=== PATIENT | female | born 1960 | race Caucasian/White ===

== ENCOUNTER 2017-12-04 01:44 | Inpatient (IN) | payer MEDICAID ==
[~2017-12-04] VITALS: Ht 160 cm; Wt 56.0 kg
[~2017-12-04 01:44] MED LIST: ALBU18HF2 INH; ALBU6.7H3 IH; ALBU8.5H8 INH; AMLO10TA13; ASPI81TA52 PO; BUDE10.22 INH; FAMO40TA73 PO; IPRA3AMP IH; PRED20TA PO
[2017-12-04] MEDS ORDERED: methylPREDNISolone sod succ 125mg/2ml vial IV ONE (01:55)
[2017-12-04] MEDS ORDERED: albuterol 2.5 MG/3 ML nebule CONTNEB PRN (01:55)
[2017-12-04] MEDS ORDERED: normal saline 1000ML IV soln IVB ONE (01:55)
[2017-12-04 02:26] LABS: BASOPHILS # (AUTO) 0.1 X10'3 (0-0.2); BASOPHILS % (AUTO) 0.7 % (0-1); EOSINOPHILS # (AUTO) 0.2 X10'3 (0-0.9); EOSINOPHILS % (AUTO) 1.5 % (0-6); HEMATOCRIT 42.8 % (35.0-45.0); HEMOGLOBIN 14.4 g/dl (12.0-16.0); LYMPHOCYTES % (AUTO) 9.3 % (21-51); MEAN CORPUSCULAR HEMOGLOBIN 30.2 PG (27.0-31.0); MEAN CORPUSCULAR HGB CONC 33.7 % (33.0-36.5); MEAN CORPUSCULAR VOLUME 89.8 FL (78-98); MEAN PLATELET VOLUME 5.8 FL (7.4-10.4); MONOCYTES # (AUTO) 0.6 X10'3 (0-0.9); NEUTROPHILS # (AUTO) 9.4 X10'3 (1.8-7.7); NEUTROPHILS % (AUTO) 83.5 % (42-75); PLATELET COUNT 380 X10'3 (140-440); RED BLOOD COUNT 4.77 X10'6 (4.20-5.60); RED CELL DISTRIBUTION WIDTH 13.4 % (11.5-14.5); WHITE BLOOD COUNT 11.2 X10'3 (4.5-11.0)
[2017-12-04 02:40] LABS: ALANINE AMINOTRANSFERASE 36 U/L (12-78); ALBUMIN 3.5 G/DL (3.4-5.0); ALKALINE PHOSPHATASE 98 IU/L (46-116); ANION GAP 6 (8-16); ASPARTATE AMINO TRANSFERASE 20 U/L (10-37); BILIRUBIN,TOTAL 0.3 MG/DL (0.1-1.0); BLOOD UREA NITROGEN 15 MG/DL (7-18); BUN/CREATININE RATIO 21.4 (6.6-38.0); CALCIUM 9.3 MG/DL (8.5-10.1); CHLORIDE 100 MMOL/L (99-107); GLUCOSE 104 MG/DL (70-104); POTASSIUM 4.1 MMOL/L (3.5-5.1); SODIUM 136 MMOL/L (135-145); TOTAL CARBON DIOXIDE 29.9 MMOL/L (24-32); eGFR 87 ML/MIN
[2017-12-04] MEDS ORDERED: BUDE10.22 INH (03:10)
[2017-12-04] MEDS ORDERED: ALBU8HFA PO (03:10)
[2017-12-04] MEDS ORDERED: IPRA3AMP IH (03:10)
[2017-12-04] MEDS ORDERED: AMLO10TA4 PO (03:10)
[2017-12-04] MEDS ORDERED: acetaminophen 325mg tablet PO PRN (03:15)
[2017-12-04] MEDS ORDERED: ondansetron/PF 4mg/2ml inj IV PRN (03:15)
[2017-12-04] MEDS ORDERED: magnesium hydroxide 30ml (MOM) UD suspension PO PRN (03:15)
[2017-12-04] MEDS ORDERED: mag hydrox/Alum hydrox/simeth 30ml oral suspension PO PRN (03:15)
[2017-12-04] MEDS ORDERED: amLODIPine 5mg tablet PO SCH (03:24)
[2017-12-04] MEDS: acetaminophen 325mg tablet PO PRN ×2 (04:41→16:23)
[2017-12-04] MEDS: amLODIPine 5mg tablet PO SCH (08:05)
[2017-12-04] MEDS: methylPREDNISolone sod succ 125mg/2ml vial IV SCH ×3 (08:06→19:38)
[2017-12-04] MEDS: enoxaparin 40mg/0.4ml syringe SUBCUT SCH (08:06)
[2017-12-04] MEDS ORDERED: normal saline 1000ml 1,000 ML IV SCH (15:10)
[2017-12-04 19:00] VITALS: BP 145/70
[2017-12-04 20:00] VITALS: BP 145/70
[2017-12-04] MEDS: ipratropium/albuterol 3ml nebule NEB PRN (20:02)
[2017-12-05] VITALS: BP 141/86
[2017-12-05] MEDS: methylPREDNISolone sod succ 125mg/2ml vial IV SCH ×4 (02:17→20:01)
[2017-12-05 05:12] LABS: BASOPHILS % (AUTO) 0 % (0-1); EOSINOPHILS # (AUTO) 0.2 X10'3 (0-0.9); EOSINOPHILS % (AUTO) 1.9 % (0-6); HEMATOCRIT 41.8 % (35.0-45.0); HEMOGLOBIN 14.1 g/dl (12.0-16.0); LYMPHOCYTES # (AUTO) 0.4 X10'3 (1.1-4.8); LYMPHOCYTES % (AUTO) 3.3 % (21-51); MEAN CORPUSCULAR HEMOGLOBIN 30.7 PG (27.0-31.0); MEAN CORPUSCULAR HGB CONC 33.6 % (33.0-36.5); MEAN CORPUSCULAR VOLUME 91.2 FL (78-98); MEAN PLATELET VOLUME 6.4 FL (7.4-10.4); MONOCYTES # (AUTO) 0.2 X10'3 (0-0.9); MONOCYTES % (AUTO) 1.5 % (2-12); NEUTROPHILS # (AUTO) 11.4 X10'3 (1.8-7.7); NEUTROPHILS % (AUTO) 93.3 % (42-75); PLATELET COUNT 373 X10'3 (140-440); RED BLOOD COUNT 4.59 X10'6 (4.20-5.60); RED CELL DISTRIBUTION WIDTH 13.8 % (11.5-14.5); WHITE BLOOD COUNT 12.2 X10'3 (4.5-11.0)
[2017-12-05 05:40] LABS: ALBUMIN 3.1 G/DL (3.4-5.0); ANION GAP 6 (8-16); BLOOD UREA NITROGEN 14 MG/DL (7-18); BUN/CREATININE RATIO 19.2 (6.6-38.0); CHLORIDE 101 MMOL/L (99-107); CREATININE 0.73 MG/DL (0.40-0.90); GLUCOSE 150 MG/DL (70-104); POTASSIUM 3.8 MMOL/L (3.5-5.1); SODIUM 135 MMOL/L (135-145); TOTAL CARBON DIOXIDE 28.3 MMOL/L (24-32); eGFR 82 ML/MIN
[2017-12-05 07:00] VITALS: BP 143/91
[2017-12-05] MEDS: levoFLOXACIN-Levaquin 750MG/D5 150 ML IV SCH (07:20)
[2017-12-05] MEDS: amLODIPine 5mg tablet PO SCH (07:21)
[2017-12-05] MEDS: enoxaparin 40mg/0.4ml syringe SUBCUT SCH (07:22)
[2017-12-05] MEDS: ipratropium/albuterol 3ml nebule NEB PRN ×3 (10:24→23:59)
[2017-12-05 11:00] VITALS: BP 141/101
[2017-12-05 14:00] VITALS: BP 139/85
[2017-12-05 20:00] VITALS: BP 146/90
[2017-12-05] MEDS: ipratropium 0.03% 30ML nasal spray NS SCH (20:00)
[2017-12-05] MEDS: clindamycin phosphate inj 300 MG in dextrose 5%-water 50ml 48 ML IV SCH (20:02)
[2017-12-06] VITALS: BP 138/81
[2017-12-06] MEDS: methylPREDNISolone sod succ 125mg/2ml vial IV SCH (01:55)
[2017-12-06] MEDS: clindamycin phosphate inj 300 MG in dextrose 5%-water 50ml 48 ML IV SCH ×4 (01:55→19:12)
[2017-12-06 06:02] LABS: BASOPHILS % (AUTO) 0.1 % (0-1); EOSINOPHILS # (AUTO) 0.1 X10'3 (0-0.9); EOSINOPHILS % (AUTO) 0.9 % (0-6); HEMATOCRIT 41.9 % (35.0-45.0); HEMOGLOBIN 14.1 g/dl (12.0-16.0); LYMPHOCYTES # (AUTO) 0.3 X10'3 (1.1-4.8); LYMPHOCYTES % (AUTO) 1.7 % (21-51); MEAN CORPUSCULAR HEMOGLOBIN 30.4 PG (27.0-31.0); MEAN CORPUSCULAR HGB CONC 33.7 % (33.0-36.5); MEAN CORPUSCULAR VOLUME 90.2 FL (78-98); MEAN PLATELET VOLUME 6.4 FL (7.4-10.4); MONOCYTES # (AUTO) 0.2 X10'3 (0-0.9); MONOCYTES % (AUTO) 1.3 % (2-12); NEUTROPHILS # (AUTO) 15.4 X10'3 (1.8-7.7); PLATELET COUNT 361 X10'3 (140-440); RED BLOOD COUNT 4.65 X10'6 (4.20-5.60)
[2017-12-06 06:07] LABS: ALBUMIN 3.1 G/DL (3.4-5.0); ANION GAP 6 (8-16); BLOOD UREA NITROGEN 21 MG/DL (7-18); BUN/CREATININE RATIO 28.8 (6.6-38.0); CALCIUM 8.9 MG/DL (8.5-10.1); CHLORIDE 104 MMOL/L (99-107); CREATININE 0.73 MG/DL (0.40-0.90); GLUCOSE 139 MG/DL (70-104); POTASSIUM 4.6 MMOL/L (3.5-5.1); SODIUM 137 MMOL/L (135-145); TOTAL CARBON DIOXIDE 27.5 MMOL/L (24-32); eGFR 82 ML/MIN
[2017-12-06 07:00] VITALS: BP 152/91
[2017-12-06] MEDS: ipratropium/albuterol 3ml nebule NEB PRN ×2 (07:40→11:51)
[2017-12-06] MEDS: ipratropium 0.03% 30ML nasal spray NS SCH ×2 (08:00→19:14)
[2017-12-06] MEDS: acetaminophen 325mg tablet PO PRN (09:13)
[2017-12-06] MEDS: amLODIPine 5mg tablet PO SCH (09:14)
[2017-12-06] MEDS: predniSONE 20 mg tablet PO SCH (09:14)
[2017-12-06] MEDS: guaiFENesin/codeine phos 10ml UD oral syrup PO PRN ×3 (09:14→19:14)
[2017-12-06] MEDS: LACTOBACILLUS RHAMNOSUS GG 15 billion unit sprinkle caps PO SCH (09:15)
[2017-12-06] MEDS: enoxaparin 40mg/0.4ml syringe SUBCUT SCH (09:15)
[2017-12-06] MEDS: levoFLOXACIN-Levaquin 750MG/D5 150 ML IV SCH (09:59)
[2017-12-06] MEDS ORDERED: ketorolac tromethamine 15mg/ml inj. IV ONE (10:05)
[2017-12-06 11:00] VITALS: BP 141/78
[2017-12-06] MEDS: ipratropium/albuterol 3ml nebule NEB SCH ×4 (12:00→23:23)
[2017-12-06 20:00] VITALS: BP 139/76
[2017-12-07] VITALS: BP 128/82
[2017-12-07] MEDS: guaiFENesin/codeine phos 10ml UD oral syrup PO PRN (01:58)
[2017-12-07] MEDS: clindamycin phosphate inj 300 MG in dextrose 5%-water 50ml 48 ML IV SCH ×4 (01:59→20:12)
[2017-12-07] MEDS: ipratropium/albuterol 3ml nebule NEB SCH ×6 (03:22→23:30)
[2017-12-07 04:27] LABS: BASOPHILS % (AUTO) 0.1 % (0-1); EOSINOPHILS # (AUTO) 0.1 X10'3 (0-0.9); EOSINOPHILS % (AUTO) 0.9 % (0-6); HEMATOCRIT 39.7 % (35.0-45.0); HEMOGLOBIN 13.5 g/dl (12.0-16.0); LYMPHOCYTES % (AUTO) 7.4 % (21-51); MEAN CORPUSCULAR HEMOGLOBIN 30.6 PG (27.0-31.0); MEAN CORPUSCULAR HGB CONC 33.9 % (33.0-36.5); MEAN CORPUSCULAR VOLUME 90.2 FL (78-98); MONOCYTES # (AUTO) 0.9 X10'3 (0-0.9); MONOCYTES % (AUTO) 6.9 % (2-12); NEUTROPHILS # (AUTO) 10.9 X10'3 (1.8-7.7); NEUTROPHILS % (AUTO) 84.7 % (42-75); PLATELET COUNT 348 X10'3 (140-440); RED CELL DISTRIBUTION WIDTH 14.1 % (11.5-14.5); WHITE BLOOD COUNT 12.9 X10'3 (4.5-11.0)
[2017-12-07 04:43] LABS: ALBUMIN 2.8 G/DL (3.4-5.0); ANION GAP 8 (8-16); BLOOD UREA NITROGEN 18 MG/DL (7-18); BUN/CREATININE RATIO 23.4 (6.6-38.0); CALCIUM 8.6 MG/DL (8.5-10.1); CHLORIDE 102 MMOL/L (99-107); CREATININE 0.77 MG/DL (0.40-0.90); GLUCOSE 103 MG/DL (70-104); SODIUM 138 MMOL/L (135-145); TOTAL CARBON DIOXIDE 28.5 MMOL/L (24-32); eGFR 78 ML/MIN
[2017-12-07 07:00] VITALS: BP 152/85
[2017-12-07] MEDS: predniSONE 20 mg tablet PO SCH (07:35)
[2017-12-07] MEDS: amLODIPine 5mg tablet PO SCH (07:35)
[2017-12-07] MEDS: enoxaparin 40mg/0.4ml syringe SUBCUT SCH (07:36)
[2017-12-07] MEDS: LACTOBACILLUS RHAMNOSUS GG 15 billion unit sprinkle caps PO SCH (07:36)
[2017-12-07] MEDS: ipratropium 0.03% 30ML nasal spray NS SCH ×2 (08:00→20:00)
[2017-12-07] MEDS: levoFLOXACIN-Levaquin 750MG/D5 150 ML IV SCH (09:03)
[2017-12-07] MEDS ORDERED: LORazepam 0.5 MG tablet PO PRN (09:15)
[2017-12-07 11:27] VITALS: BP 136/84
[2017-12-07] MEDS ORDERED: iohexol 350MG/ML 100ml bottle IV ONE (11:54)
[2017-12-07 19:00] VITALS: BP 135/87
[2017-12-08 00:20] VITALS: BP 117/74
[2017-12-08] MEDS: clindamycin phosphate inj 300 MG in dextrose 5%-water 50ml 48 ML IV SCH ×4 (02:08→20:44)
[2017-12-08] MEDS: ipratropium/albuterol 3ml nebule NEB SCH ×6 (02:53→23:40)
[2017-12-08 06:10] LABS: BASOPHILS # (AUTO) 0.1 X10'3 (0-0.2); BASOPHILS % (AUTO) 0.6 % (0-1); EOSINOPHILS # (AUTO) 0.1 X10'3 (0-0.9); EOSINOPHILS % (AUTO) 1.6 % (0-6); HEMATOCRIT 41.5 % (35.0-45.0); HEMOGLOBIN 13.8 g/dl (12.0-16.0); LYMPHOCYTES # (AUTO) 1.6 X10'3 (1.1-4.8); LYMPHOCYTES % (AUTO) 17.9 % (21-51); MEAN CORPUSCULAR HEMOGLOBIN 30.1 PG (27.0-31.0); MEAN CORPUSCULAR HGB CONC 33.2 % (33.0-36.5); MEAN CORPUSCULAR VOLUME 90.6 FL (78-98); MEAN PLATELET VOLUME 6.2 FL (7.4-10.4); MONOCYTES # (AUTO) 0.7 X10'3 (0-0.9); MONOCYTES % (AUTO) 7.4 % (2-12); NEUTROPHILS # (AUTO) 6.6 X10'3 (1.8-7.7); NEUTROPHILS % (AUTO) 72.5 % (42-75); PLATELET COUNT 336 X10'3 (140-440); RED BLOOD COUNT 4.58 X10'6 (4.20-5.60); WHITE BLOOD COUNT 9.2 X10'3 (4.5-11.0)
[2017-12-08 06:38] LABS: ALBUMIN 2.8 G/DL (3.4-5.0); ANION GAP 6 (8-16); BLOOD UREA NITROGEN 16 MG/DL (7-18); BUN/CREATININE RATIO 21.9 (6.6-38.0); CALCIUM 8.7 MG/DL (8.5-10.1); CHLORIDE 101 MMOL/L (99-107); CREATININE 0.73 MG/DL (0.40-0.90); GLUCOSE 97 MG/DL (70-104); POTASSIUM 4.3 MMOL/L (3.5-5.1); SODIUM 137 MMOL/L (135-145); TOTAL CARBON DIOXIDE 29.7 MMOL/L (24-32); eGFR 82 ML/MIN
[2017-12-08 07:00] VITALS: BP_SYST 113; BP_SYST 137; BP_DIAS 77; BP_DIAS 90
[2017-12-08] MEDS: predniSONE 20 mg tablet PO SCH (07:32)
[2017-12-08] MEDS: levoFLOXACIN-Levaquin 750MG/D5 150 ML IV SCH (07:33)
[2017-12-08] MEDS: amLODIPine 5mg tablet PO SCH (07:33)
[2017-12-08] MEDS: enoxaparin 40mg/0.4ml syringe SUBCUT SCH (07:33)
[2017-12-08] MEDS: LACTOBACILLUS RHAMNOSUS GG 15 billion unit sprinkle caps PO SCH (07:33)
[2017-12-08] MEDS: ipratropium 0.03% 30ML nasal spray NS SCH ×2 (08:00→20:00)
[2017-12-08 11:36] VITALS: BP_SYST 107; BP_SYST 121; BP_DIAS 61; BP_DIAS 86
[2017-12-08] MEDS ORDERED: methylPREDNISolone sod succ 125mg/2ml vial IV ONE (15:40)
[2017-12-08] MEDS ORDERED: albuterol 2.5 MG/3 ML nebule NEB PRN (17:25)
[2017-12-08 19:00] VITALS: BP 143/92
[2017-12-09] VITALS: BP 116/70
[2017-12-09] MEDS: HYDROcodone/acetaminophen 10/325mg tab PO PRN ×2 (01:02→06:51)
[2017-12-09] MEDS: clindamycin phosphate inj 300 MG in dextrose 5%-water 50ml 48 ML IV SCH ×2 (01:39→07:21)
[2017-12-09] MEDS: ipratropium/albuterol 3ml nebule NEB SCH ×6 (02:44→23:04)
[2017-12-09 05:58] LABS: BASOPHILS # (AUTO) 0.1 X10'3 (0-0.2); BASOPHILS % (AUTO) 0.7 % (0-1); EOSINOPHILS % (AUTO) 0 % (0-6); HEMOGLOBIN 14.6 g/dl (12.0-16.0); LYMPHOCYTES # (AUTO) 0.7 X10'3 (1.1-4.8); MEAN CORPUSCULAR HEMOGLOBIN 30.5 PG (27.0-31.0); MEAN CORPUSCULAR HGB CONC 33.9 % (33.0-36.5); MEAN CORPUSCULAR VOLUME 89.9 FL (78-98); MEAN PLATELET VOLUME 6.1 FL (7.4-10.4); MONOCYTES # (AUTO) 0.4 X10'3 (0-0.9); MONOCYTES % (AUTO) 4.5 % (2-12); NEUTROPHILS # (AUTO) 8.7 X10'3 (1.8-7.7); NEUTROPHILS % (AUTO) 87.8 % (42-75); PLATELET COUNT 382 X10'3 (140-440); RED BLOOD COUNT 4.78 X10'6 (4.20-5.60); RED CELL DISTRIBUTION WIDTH 14.3 % (11.5-14.5); WHITE BLOOD COUNT 9.9 X10'3 (4.5-11.0)
[2017-12-09 06:00] LABS: ALBUMIN 3.1 G/DL (3.4-5.0); ANION GAP 5 (8-16); BLOOD UREA NITROGEN 19 MG/DL (7-18); BUN/CREATININE RATIO 22.1 (6.6-38.0); CALCIUM 9.8 MG/DL (8.5-10.1); CHLORIDE 97 MMOL/L (99-107); CREATININE 0.86 MG/DL (0.40-0.90); GLUCOSE 140 MG/DL (70-104); POTASSIUM 4.5 MMOL/L (3.5-5.1); SODIUM 132 MMOL/L (135-145); TOTAL CARBON DIOXIDE 29.7 MMOL/L (24-32); eGFR 68 ML/MIN
[2017-12-09] MEDS: LACTOBACILLUS RHAMNOSUS GG 15 billion unit sprinkle caps PO SCH (06:50)
[2017-12-09 07:06] VITALS: BP 141/99
[2017-12-09] MEDS: amLODIPine 5mg tablet PO SCH (07:16)
[2017-12-09] MEDS: predniSONE 20 mg tablet PO SCH (07:16)
[2017-12-09] MEDS: enoxaparin 40mg/0.4ml syringe SUBCUT SCH (07:17)
[2017-12-09] MEDS: ipratropium 0.03% 30ML nasal spray NS SCH ×2 (08:00→20:00)
[2017-12-09] MEDS: levoFLOXACIN-Levaquin 750MG/D5 150 ML IV SCH (08:27)
[2017-12-09] MEDS: guaiFENesin/codeine phos 10ml UD oral syrup PO PRN (09:50)
[2017-12-09 10:53] VITALS: BP 117/83
[2017-12-09] MEDS ORDERED: oxyCODONE/APAP 10/325mg tablet PO PRN (13:35)
[2017-12-09] MEDS: oxyCODONE/APAP 10/325mg tablet PO PRN ×2 (14:09→20:02)
[2017-12-09 20:00] VITALS: BP 140/84
[2017-12-10] VITALS: BP 119/75
[2017-12-10] MEDS: ipratropium/albuterol 3ml nebule NEB SCH ×3 (02:59→10:09)
[2017-12-10] MEDS: predniSONE 20 mg tablet PO SCH (07:22)
[2017-12-10] MEDS: levoFLOXACIN-Levaquin 750MG/D5 150 ML IV SCH (07:22)
[2017-12-10] MEDS: oxyCODONE/APAP 10/325mg tablet PO PRN (07:22)
[2017-12-10] MEDS: amLODIPine 5mg tablet PO SCH (07:22)
[2017-12-10] MEDS: LACTOBACILLUS RHAMNOSUS GG 15 billion unit sprinkle caps PO SCH (07:22)
[2017-12-10] MEDS: ipratropium 0.03% 30ML nasal spray NS SCH (07:23)
[2017-12-10] MEDS: enoxaparin 40mg/0.4ml syringe SUBCUT SCH (07:23)
[2017-12-10 07:29] VITALS: BP 124/77
[2017-12-10] MEDS ORDERED: PRED10TA23 PO (10:26)
[2017-12-10] MEDS ORDERED: LEVO500T2 PO (10:26)
[2017-12-10] MEDS ORDERED: ALBU8HFA PO (10:26)
[2017-12-10 11:47] VITALS: BP 110/71
== END 2017-12-10 13:40 | disposition home health service (06) | DRG 140 ==
LOC: ER 01:45 → ED HOLD 03:11 → EDBEDREQ 14:17 → SUR 3N 14:50
PROVIDERS: ADMIT Internal Medicine; ATTEND Internal Medicine
DX: J44.0 Chronic obstructive pulmonary disease with (acute) lower respiratory infection (principal); J96.20 Acute and chronic respiratory failure, unspecified whether with hypoxia or hypercapnia; R00.0 Tachycardia, unspecified; J44.1 Chronic obstructive pulmonary disease with (acute) exacerbation; I10 Essential (primary) hypertension; F12.90 Cannabis use, unspecified, uncomplicated; G89.29 Other chronic pain; J20.9 Acute bronchitis, unspecified; F41.9 Anxiety disorder, unspecified; M54.2 Cervicalgia; M54.9 Dorsalgia, unspecified; Z87.891 Personal history of nicotine dependence; Z88.5 Allergy status to narcotic agent; Z79.899 Other long term (current) drug therapy
CPT/HCPCS: 36415; 71046; 71275; 80048; 80053; 83735; 84484; 85025; 87070; 94640; 94760; 96361; 96374; 99285; J1650; J1885; J1956; J2270; J2930; J3490; J7030; J7060; J7512; Q9967

== ENCOUNTER 2018-02-06 11:13 | Emergency (ER) | payer MEDICAID ==
[~2018-02-06] VITALS: Ht 160 cm; Wt 53.5 kg
[~2018-02-06 11:13] MED LIST changes: -ALBU18HF2 INH; -ALBU8.5H8 INH; +ALBU8HFA PO; -AMLO10TA13; +AMLO10TA4 PO; -ASPI81TA52 PO; -FAMO40TA73 PO; -PRED20TA PO
[2018-02-06] MEDS ORDERED: methylPREDNISolone sod succ 125mg/2ml vial IV ONE (11:40)
[2018-02-06] MEDS ORDERED: ipratropium/albuterol 3ml nebule NEB ONE (11:40)
[2018-02-06] MEDS ORDERED: normal saline 1000ML IV soln IVB ONE (11:40)
[2018-02-06 11:51] LABS: BASOPHILS % (AUTO) 0.3 % (0-1); EOSINOPHILS # (AUTO) 0.4 X10'3 (0-0.9); EOSINOPHILS % (AUTO) 4.7 % (0-6); HEMATOCRIT 43.3 % (35.0-45.0); LYMPHOCYTES # (AUTO) 1.6 X10'3 (1.1-4.8); LYMPHOCYTES % (AUTO) 19.4 % (21-51); MEAN CORPUSCULAR HEMOGLOBIN 30.8 PG (27.0-31.0); MEAN CORPUSCULAR HGB CONC 34.6 % (33.0-36.5); MEAN CORPUSCULAR VOLUME 89.3 FL (78-98); MEAN PLATELET VOLUME 6.3 FL (7.4-10.4); MONOCYTES # (AUTO) 0.6 X10'3 (0-0.9); MONOCYTES % (AUTO) 6.9 % (2-12); NEUTROPHILS # (AUTO) 5.7 X10'3 (1.8-7.7); NEUTROPHILS % (AUTO) 68.7 % (42-75); PLATELET COUNT 342 X10'3 (140-440); RED BLOOD COUNT 4.85 X10'6 (4.20-5.60); RED CELL DISTRIBUTION WIDTH 14.4 % (11.5-14.5); WHITE BLOOD COUNT 8.3 X10'3 (4.5-11.0)
[2018-02-06 12:08] LABS: ALANINE AMINOTRANSFERASE 35 U/L (12-78); ALBUMIN 3.8 G/DL (3.4-5.0); ALKALINE PHOSPHATASE 89 IU/L (46-116); ANION GAP 12 (8-16); ASPARTATE AMINO TRANSFERASE 24 U/L (10-37); BILIRUBIN,TOTAL 0.3 MG/DL (0.1-1.0); BLOOD UREA NITROGEN 13 MG/DL (7-18); BUN/CREATININE RATIO 19.4 (6.6-38.0); CALCIUM 9.4 MG/DL (8.5-10.1); CHLORIDE 102 MMOL/L (99-107); CREATININE 0.67 MG/DL (0.40-0.90); GLUCOSE 100 MG/DL (70-104); POTASSIUM 3.8 MMOL/L (3.5-5.1); SODIUM 139 MMOL/L (135-145); TOTAL CARBON DIOXIDE 25.1 MMOL/L (24-32); TOTAL PROTEIN 7.5 G/DL (6.4-8.2); eGFR > 90 ML/MIN
[2018-02-06] MEDS ORDERED: albuterol 2.5 MG/3 ML nebule NEB ONE (12:10)
[2018-02-06] MEDS ORDERED: acetaminophen 325mg tablet PO ONE (12:35)
[2018-02-06] MEDS ORDERED: magnesium 2GM in 50ml NS 50 ML IV ONE (13:45)
[2018-02-06] MEDS ORDERED: albuterol 2.5 MG/3 ML nebule CONTNEB PRN (14:00)
[2018-02-06 14:15] LABS: ABG BASE EXCESS -1.9 mmol/L (-2.0-3.0); ABG HCO3 21.8 mmol/L (22.0-26.0); ABG OXYGEN SATURATION 95.1 % (95-98); ABG PCO2 (T) 34.5 mmHg (32.0-45.0); ABG PH (T) 7.419 (7.350-7.450); ABG PO2 (T) 75.4 mmHg (83-108); ALLEN'S TEST Positive; FCOHb 0.6 % (0.5-1.5); FMetHb 0.1 % (0.3-1.12); FO2Hb 94.4 % (94-100); TOTAL HEMOGLOBIN 14.8 G/dl (12.0-16.0)
[2018-02-06] MEDS ORDERED: LORazepam 1 MG tablet PO ONE (15:30)
[2018-02-06] MEDS ORDERED: IPRA3AMP IH (16:06)
[2018-02-06] MEDS ORDERED: ATI0.5T PO (16:06)
[2018-02-06] MEDS ORDERED: PRED20TA PO (16:06)
[2018-02-06 16:33] VITALS: BP 157/95
== END 2018-02-06 16:37 | disposition home or self-care (01) ==
LOC: ER 11:13
DX: J45.901 Unspecified asthma with (acute) exacerbation (principal); I10 Essential (primary) hypertension; J44.9 Chronic obstructive pulmonary disease, unspecified; Z87.891 Personal history of nicotine dependence; F12.10 Cannabis abuse, uncomplicated; Z79.899 Other long term (current) drug therapy
CPT/HCPCS: 36415; 36600; 71045; 80053; 82803; 85018; 85025; 93005; 94644; 94760; 96361; 96365; 96375; 99285; J2930; J3475; J7030; 94640

== ENCOUNTER 2018-03-11 06:24 | Emergency (ER) | payer MEDICAID ==
[~2018-03-11] VITALS: Ht 160 cm; Wt 56.0 kg
[~2018-03-11 06:24] MED LIST changes: +ATI0.5T PO
[2018-03-11] MEDS ORDERED: dexamethasone 4mg tablet PO ONE (06:35)
[2018-03-11] MEDS ORDERED: ipratropium/albuterol 3ml nebule NEB ONE (06:35)
[2018-03-11] MEDS ORDERED: terbutaline 1 mg/ml inj SQ STA (06:42)
[2018-03-11] MEDS ORDERED: magnesium 2GM in 50ml NS 50 ML IV ONE (06:45)
[2018-03-11 07:06] LABS: ABG BASE EXCESS -1.5 mmol/L (-2.0-3.0); ABG HCO3 21.1 mmol/L (22.0-26.0); ABG OXYGEN SATURATION 96.5 % (95-98); ABG PCO2 (T) 30.4 mmHg (32.0-45.0); ABG PO2 (T) 82.9 mmHg (83-108); ALLEN'S TEST Positive; FCOHb 0.7 % (0.5-1.5); FO2Hb 95.8 % (94-100); TOTAL HEMOGLOBIN 14.9 G/dl (12.0-16.0)
[2018-03-11] MEDS ORDERED: albuterol 2.5 MG/3 ML nebule CONTNEB PRN (07:25)
[2018-03-11] MEDS ORDERED: DOXY100C43 PO (09:14)
[2018-03-11] MEDS ORDERED: PRED5TAB PO (09:14)
[2018-03-11] MEDS ORDERED: ALB0.5UD IH (09:14)
[2018-03-11] MEDS ORDERED: ALBU8HFA PO (09:14)
[2018-03-11 10:20] VITALS: BP 120/65
== END 2018-03-11 10:22 | disposition home or self-care (01) ==
LOC: ER 06:24
DX: J44.1 Chronic obstructive pulmonary disease with (acute) exacerbation (principal); J20.9 Acute bronchitis, unspecified; I10 Essential (primary) hypertension; R06.03 Acute respiratory distress; F12.10 Cannabis abuse, uncomplicated; Z79.899 Other long term (current) drug therapy
CPT/HCPCS: 36600; 71045; 82803; 85018; 94640; 94644; 94760; 96365; 96372; 99291; J3105; J3475; J8540

== ENCOUNTER 2018-04-10 02:53 | Emergency (ER) | payer MEDICAID ==
[~2018-04-10] VITALS: Ht 160 cm; Wt 56.0 kg
[~2018-04-10 02:53] MED LIST changes: +ALB0.5UD IH; +PRED5TAB PO
[2018-04-10] MEDS ORDERED: methylPREDNISolone sod succ 125mg/2ml vial IV ONE (03:25)
[2018-04-10] MEDS ORDERED: levoFLOXACIN 750MG TABLET PO ONE (03:25)
[2018-04-10] MEDS ORDERED: ipratropium/albuterol 3ml nebule NEB ONE ×2 (03:25→03:35)
[2018-04-10] MEDS ORDERED: albuterol 2.5 MG/3 ML nebule CONTNEB PRN (03:25)
[2018-04-10] MEDS ORDERED: albuterol 2.5 MG/3 ML nebule NEB ONE ×2 (03:35→04:55)
[2018-04-10 03:57] LABS: BASOPHILS # (AUTO) 0.1 X10'3 (0-0.2); BASOPHILS % (AUTO) 1.1 % (0-1); EOSINOPHILS # (AUTO) 0.4 X10'3 (0-0.9); EOSINOPHILS % (AUTO) 6.6 % (0-6); HEMATOCRIT 43.6 % (35.0-45.0); HEMOGLOBIN 15.1 g/dl (12.0-16.0); LYMPHOCYTES # (AUTO) 2.1 X10'3 (1.1-4.8); MEAN CORPUSCULAR HGB CONC 34.5 % (33.0-36.5); MEAN CORPUSCULAR VOLUME 89.7 FL (78-98); MEAN PLATELET VOLUME 6.7 FL (7.4-10.4); MONOCYTES # (AUTO) 0.5 X10'3 (0-0.9); MONOCYTES % (AUTO) 8.7 % (2-12); NEUTROPHILS # (AUTO) 2.6 X10'3 (1.8-7.7); NEUTROPHILS % (AUTO) 46.6 % (42-75); PLATELET COUNT 314 X10'3 (140-440); RED BLOOD COUNT 4.86 X10'6 (4.20-5.60); RED CELL DISTRIBUTION WIDTH 13.2 % (11.5-14.5); WHITE BLOOD COUNT 5.6 X10'3 (4.5-11.0)
[2018-04-10 04:11] LABS: PARTIAL THROMBOPLASTIN TIME 26 SECONDS (22-32)
[2018-04-10 04:23] LABS: ALANINE AMINOTRANSFERASE 30 U/L (12-78); ALBUMIN 3.6 G/DL (3.4-5.0); ALBUMIN/GLOBULIN RATIO 1.1 (1.1-1.5); ALKALINE PHOSPHATASE 88 IU/L (46-116); ANION GAP 9 (8-16); ASPARTATE AMINO TRANSFERASE 23 U/L (10-37); BILIRUBIN,TOTAL 0.3 MG/DL (0.1-1.0); BLOOD UREA NITROGEN 14 MG/DL (7-18); BUN/CREATININE RATIO 18.9 (6.6-38.0); CALCIUM 9.1 MG/DL (8.5-10.1); CHLORIDE 101 MMOL/L (99-107); CREATININE 0.74 MG/DL (0.40-0.90); GLUCOSE 109 MG/DL (70-104); POTASSIUM 4.1 MMOL/L (3.5-5.1); SODIUM 135 MMOL/L (135-145); TOTAL CARBON DIOXIDE 25.3 MMOL/L (24-32); TOTAL PROTEIN 6.8 G/DL (6.4-8.2); eGFR 81 ML/MIN
[2018-04-10] MEDS ORDERED: PRED20TA PO (05:45)
[2018-04-10] MEDS ORDERED: ALB0.5UD IH (05:45)
[2018-04-10] MEDS ORDERED: AZIT-63 PO (05:45)
[2018-04-10] MEDS ORDERED: ALBU8.5H8 INH (05:45)
[2018-04-10 05:56] VITALS: BP 127/85
== END 2018-04-10 05:57 | disposition home or self-care (01) ==
LOC: ER 02:54
DX: J44.1 Chronic obstructive pulmonary disease with (acute) exacerbation (principal); I10 Essential (primary) hypertension; F12.10 Cannabis abuse, uncomplicated; Z87.891 Personal history of nicotine dependence; Z79.899 Other long term (current) drug therapy
CPT/HCPCS: 36415; 71045; 80053; 83605; 84484; 85025; 85610; 85730; 87040; 93005; 94640; 94760; 96374; 99285; J2930

== ENCOUNTER 2018-12-06 17:44 | Emergency (ER) | payer MEDICAID ==
[~2018-12-06 17:44] MED LIST changes: -ALB0.5UD IH; +ALBU8.5H8 INH; -IPRA3AMP IH; +IPRA3AMP31 IH
--- NOTE | 2018-12-06 19:45 | NUR ---
no response from devin after 3 attempts to call back for triage. call placed to number on file. recieved personal recorded message, " Hi this is Graciela, i have an obama phone and can't recieve messages, so please don't leave a message,try calling me back is best." dr. fry informed.
[2018-12-07] MEDS ORDERED: LISI1TAB13 PO (11:24)
[2018-12-07] MEDS ORDERED: ASPI-1130 PO (11:24)
== END 2018-12-06 19:48 | disposition left against medical advice (07) ==
LOC: ER 17:44
DX: J45.909 Unspecified asthma, uncomplicated (principal); Z53.21 Procedure and treatment not carried out due to patient leaving prior to being seen by health care provider

== ENCOUNTER 2018-12-07 01:38 | Inpatient (IN) | payer MEDICAID ==
[~2018-12-07] VITALS: Ht 160 cm; Wt 59.3 kg
[2018-12-07] MEDS ORDERED: albuterol 2.5 MG/3 ML nebule CONTNEB PRN (02:00)
[2018-12-07] MEDS ORDERED: normal saline 1000ML IV soln IVB ONE (02:00)
[2018-12-07] MEDS ORDERED: ipratropium 0.5 MG/2.5ML nebule IH ONE (02:00)
[2018-12-07] MEDS ORDERED: methylPREDNISolone sod succ 125mg/2ml vial IV ONE (02:00)
[2018-12-07 03:04] LABS: BASOPHILS % (AUTO) 0.5 % (0-1); EOSINOPHILS # (AUTO) 0.2 X10'3 (0-0.9); EOSINOPHILS % (AUTO) 3.8 % (0-6); HEMATOCRIT 42.5 % (35.0-45.0); HEMOGLOBIN 13.6 g/dl (12.0-16.0); LYMPHOCYTES # (AUTO) 1.1 X10'3 (1.1-4.8); LYMPHOCYTES % (AUTO) 20.8 % (21-51); MEAN CORPUSCULAR HEMOGLOBIN 28.7 PG (27.0-31.0); MEAN CORPUSCULAR VOLUME 89.6 FL (78-98); MONOCYTES # (AUTO) 0.5 X10'3 (0-0.9); MONOCYTES % (AUTO) 9.1 % (2-12); NEUTROPHILS # (AUTO) 3.7 X10'3 (1.8-7.7); NEUTROPHILS % (AUTO) 65.8 % (42-75); PLATELET COUNT 339 X10'3 (140-440); RED BLOOD COUNT 4.74 X10'6 (4.20-5.60); RED CELL DISTRIBUTION WIDTH 12.9 % (11.5-14.5); WHITE BLOOD COUNT 5.5 X10'3 (4.5-11.0)
[2018-12-07 03:06] LABS: ALANINE AMINOTRANSFERASE 32 U/L (12-78); ALBUMIN 3.4 G/DL (3.4-5.0); ALBUMIN/GLOBULIN RATIO 0.9 (1.1-1.5); ALKALINE PHOSPHATASE 123 IU/L (46-116); ANION GAP 12 (8-16); ASPARTATE AMINO TRANSFERASE 29 U/L (10-37); BILIRUBIN,TOTAL 0.3 MG/DL (0.1-1.0); BLOOD UREA NITROGEN 18 MG/DL (7-18); CALCIUM 9.5 MG/DL (8.5-10.1); CHLORIDE 103 MMOL/L (99-107); CREATININE 0.75 MG/DL (0.40-0.90); GLUCOSE 92 MG/DL (70-104); POTASSIUM 4.2 MMOL/L (3.5-5.1); SODIUM 141 MMOL/L (135-145); eGFR 80 ML/MIN
[2018-12-07 03:23] LABS: PROTHROMBIN TIME 9.8 SECONDS (9.0-12.0)
[2018-12-07] MEDS ORDERED: ondansetron/PF 4mg/2ml inj IV PRN (05:55)
[2018-12-07] MEDS ORDERED: acetaminophen 325mg tablet PO PRN (05:55)
[2018-12-07] MEDS ORDERED: magnesium hydroxide 30ml (MOM) UD suspension PO PRN (05:55)
[2018-12-07] MEDS ORDERED: albuterol 2.5 MG/3 ML nebule NEB PRN (06:00)
[2018-12-07] MEDS: normal saline 1000ml 1,000 ML IV SCH ×2 (06:33→14:08)
[2018-12-07] MEDS ORDERED: normal saline 500ml IV soln 500 ML IV ONE (07:25)
--- NOTE | 2018-12-07 07:52 | NUR ---
Assumed care of patient, patient A&O x 4, NS infusing. patient on 1L NC. Patient ambualted to restroom with steady gait.
[2018-12-07] MEDS: amLODIPine 5mg tablet PO SCH (08:20)
[2018-12-07] MEDS: methylPREDNISolone sod succ/PF 40mg inj. IV SCH ×2 (08:20→16:21)
[2018-12-07] MEDS: heparin, porcine 5000 units/ml vial SQ SCH ×2 (08:22→20:10)
[2018-12-07] MEDS: acetaminophen w/codeine (30MG) #3 tablet PO SCH ×3 (08:24→20:10)
[2018-12-07] MEDS: montelukast 10mg tablet PO SCH (08:25)
[2018-12-07] MEDS: cefuroxime axetil 250mg tablet PO SCH ×2 (08:43→20:09)
[2018-12-07 08:52] LABS: D-DIMER 0.27 MG/L FEU (0-0.50)
--- NOTE | 2018-12-07 09:44 | NUR ---
Called to given floor RN report, no RN assigned at this time and charged stepped away. Will have RN to call me.
[2018-12-07 09:53] LABS: LIPASE 103 U/L (73-393); MAGNESIUM 1.8 MG/DL (1.5-2.4); PHOSPHORUS 3.4 MG/DL (2.3-4.5)
--- NOTE | 2018-12-07 09:57 | NUR ---
Called floor again to give report, charge is still off the floor and no RN assigned. Will call back.
[2018-12-07] MEDS ORDERED: ASPI-1130 PO (11:24)
[2018-12-07] MEDS ORDERED: LISI1TAB13 PO (11:24)
[2018-12-07] MEDS: BUDESONIDE 0.25 MG/2 ML AMPUL.NEB IH SCH ×2 (11:30→18:44)
[2018-12-07] MEDS: ipratropium/albuterol 3ml nebule NEB SCH ×4 (11:30→22:16)
[2018-12-07] MEDS ORDERED: pneumococcal 23-VAL P-sac vacc 25 mcg/0.5ml vial IMVAC ONE (11:45)
[2018-12-07 14:00] VITALS: BP 135/89
--- NOTE | 2018-12-07 18:44 | NUR ---
Problems reprioritized. Patient report given, questions answered & plan of care reviewed with Analisa HAZEL.
--- NOTE | 2018-12-07 18:46 | NUR ---
Patient in room [facility] 356. I have received report from Selin HAZEL and had the opportunity to ask questions and assume patient care.
[2018-12-07 19:30] VITALS: BP 129/81
[2018-12-07] MEDS: lactobacillus rhamnosus 10,000 MMU CELLS/CAPSULE PO SCH (20:09)
[2018-12-07] MEDS: famotidine 20mg tablet PO SCH (20:10)
[2018-12-07] MEDS: LORazepam 0.5 MG tablet PO SCH (20:10)
[2018-12-07] MEDS ORDERED: HYDROcodone/acetaminophen 10/325mg tab PO PRN (20:20)
[2018-12-08] VITALS: BP 124/79
[2018-12-08] MEDS: methylPREDNISolone sod succ/PF 40mg inj. IV SCH ×4 (00:12→23:58)
[2018-12-08] MEDS: ipratropium/albuterol 3ml nebule NEB SCH ×6 (02:13→22:40)
[2018-12-08] MEDS: acetaminophen w/codeine (30MG) #3 tablet PO SCH ×4 (02:26→20:54)
--- NOTE | 2018-12-08 02:54 | NUR ---
Urine sample collected via clean hat and taken down to lab.
[2018-12-08 02:57] LABS: CLARITY,URINE CLEAR (Clear); COLOR,URINE YELLOW (Yellow); GLUCOSE, URINE NEGATIVE (Neg); KETONES,URINE NEGATIVE (Neg); LEUKOCYTE ESTERASE ,URINE NEGATIVE (Neg); NITRITES, URINE NEGATIVE (Neg); OCCULT BLOOD,URINE NEGATIVE (Neg); PH,URINE 6.5 (4.8-8.0); PROTEIN,URINE NEGATIVE (Neg); UROBILINOGEN,URINE 0.2 E.U/dL (0.2-1.0)
[2018-12-08 03:12] LABS: URINE AMPHETAMINE SCREEN POSITIVE (Neg); URINE BARBITUATE SCREEN NEGATIVE (Neg); URINE BENZODIAZEPINES SCREEN NEGATIVE (Neg); URINE CANNABINOID SCREEN NEGATIVE (Neg); URINE COCAINE SCREEN NEGATIVE (Neg); URINE METHADONE SCREEN NEGATIVE (Neg); URINE OPIATE SCREEN POSITIVE (Neg); URINE PHENCYCLIDINE SCREEN NEGATIVE (Neg)
[2018-12-08 03:15] LABS: UA COLLECTION TYPE CLN CATCH MIDSTREAM
[2018-12-08 06:13] LABS: ALANINE AMINOTRANSFERASE 26 U/L (12-78); ALBUMIN 3.1 G/DL (3.4-5.0); ALBUMIN/GLOBULIN RATIO 0.9 (1.1-1.5); ALKALINE PHOSPHATASE 110 IU/L (46-116); ANION GAP 9 (8-16); ASPARTATE AMINO TRANSFERASE 16 U/L (10-37); BILIRUBIN,TOTAL 0.2 MG/DL (0.1-1.0); BLOOD UREA NITROGEN 15 MG/DL (7-18); CALCIUM 9.1 MG/DL (8.5-10.1); CHLORIDE 104 MMOL/L (99-107); CREATININE 0.75 MG/DL (0.40-0.90); GLUCOSE 167 MG/DL (70-104); POTASSIUM 3.8 MMOL/L (3.5-5.1); SODIUM 137 MMOL/L (135-145); TOTAL CARBON DIOXIDE 23.6 MMOL/L (24-32); TOTAL PROTEIN 6.7 G/DL (6.4-8.2); eGFR 80 ML/MIN
[2018-12-08 06:14] LABS: BASOPHILS % (AUTO) 0 % (0-1); EOSINOPHILS % (AUTO) 0 % (0-6); HEMATOCRIT 40.4 % (35.0-45.0); HEMOGLOBIN 13.3 g/dl (12.0-16.0); LYMPHOCYTES # (AUTO) 0.5 X10'3 (1.1-4.8); LYMPHOCYTES % (AUTO) 4.9 % (21-51); MEAN CORPUSCULAR HEMOGLOBIN 29.5 PG (27.0-31.0); MEAN CORPUSCULAR HGB CONC 32.9 % (33.0-36.5); MEAN CORPUSCULAR VOLUME 89.6 FL (78-98); MEAN PLATELET VOLUME 7.5 FL (7.4-10.4); MONOCYTES # (AUTO) 0.2 X10'3 (0-0.9); MONOCYTES % (AUTO) 1.5 % (2-12); NEUTROPHILS # (AUTO) 10.1 X10'3 (1.8-7.7); NEUTROPHILS % (AUTO) 93.6 % (42-75); PLATELET COUNT 310 X10'3 (140-440); RED BLOOD COUNT 4.51 X10'6 (4.20-5.60); RED CELL DISTRIBUTION WIDTH 13.4 % (11.5-14.5); WHITE BLOOD COUNT 10.8 X10'3 (4.5-11.0)
--- NOTE | 2018-12-08 06:30 | NUR ---
Patient in room [facility] 356. I have received report from Analisa HAZEL and had the opportunity to ask questions and assume patient care.
--- NOTE | 2018-12-08 06:46 | NUR ---
Problems reprioritized. Patient report given, questions answered & plan of care reviewed with Carlos RN.
[2018-12-08] MEDS: BUDESONIDE 0.25 MG/2 ML AMPUL.NEB IH SCH ×2 (06:54→19:17)
[2018-12-08 07:46] VITALS: BP 113/70
[2018-12-08] MEDS: lactobacillus rhamnosus 10,000 MMU CELLS/CAPSULE PO SCH ×2 (09:40→20:52)
[2018-12-08] MEDS: montelukast 10mg tablet PO SCH (09:41)
[2018-12-08] MEDS: cefuroxime axetil 250mg tablet PO SCH ×2 (09:42→20:52)
[2018-12-08] MEDS: amLODIPine 5mg tablet PO SCH (09:42)
[2018-12-08] MEDS: heparin, porcine 5000 units/ml vial SQ SCH ×2 (09:45→20:55)
[2018-12-08 11:00] VITALS: BP 125/76
[2018-12-08] MEDS: normal saline 1000ml 1,000 ML IV SCH (11:45)
[2018-12-08] MEDS: ALPRAZolam 0.5mg tablet PO PRN (12:20)
--- NOTE | 2018-12-08 18:30 | NUR ---
Problems reprioritized. Patient report given, questions answered & plan of care reviewed with Pat RN.
--- NOTE | 2018-12-08 18:30 | NUR ---
Patient in room [facility] 356. I have received report from YASEMIN Gonzalez and had the opportunity to ask questions and assume patient care.
[2018-12-08 19:30] VITALS: BP 130/79
--- NOTE | 2018-12-08 19:30 | NUR ---
pt filiberto INFANTE; reports she is breathing easier Addendum: 12/09/18 at 0257 by Kimberlee Peacock RN Amended: Links added.
[2018-12-08] MEDS: LORazepam 0.5 MG tablet PO SCH (20:54)
[2018-12-08] MEDS: famotidine 20mg tablet PO SCH (20:54)
[2018-12-09] VITALS: BP 132/86
[2018-12-09] MEDS: acetaminophen w/codeine (30MG) #3 tablet PO SCH ×4 (02:02→20:33)
[2018-12-09] MEDS: ipratropium/albuterol 3ml nebule NEB SCH ×6 (02:38→23:31)
[2018-12-09 05:59] LABS: BASOPHILS % (AUTO) 0 % (0-1); EOSINOPHILS # (AUTO) 0.3 X10'3 (0-0.9); EOSINOPHILS % (AUTO) 1.6 % (0-6); HEMOGLOBIN 12.9 g/dl (12.0-16.0); LYMPHOCYTES # (AUTO) 0.5 X10'3 (1.1-4.8); LYMPHOCYTES % (AUTO) 2.8 % (21-51); MEAN CORPUSCULAR HEMOGLOBIN 29.9 PG (27.0-31.0); MEAN CORPUSCULAR HGB CONC 33.2 % (33.0-36.5); MEAN CORPUSCULAR VOLUME 90.1 FL (78-98); MEAN PLATELET VOLUME 7.3 FL (7.4-10.4); MONOCYTES # (AUTO) 0.2 X10'3 (0-0.9); MONOCYTES % (AUTO) 1.2 % (2-12); NEUTROPHILS # (AUTO) 16.1 X10'3 (1.8-7.7); NEUTROPHILS % (AUTO) 94.4 % (42-75); PLATELET COUNT 319 X10'3 (140-440); RED BLOOD COUNT 4.33 X10'6 (4.20-5.60); RED CELL DISTRIBUTION WIDTH 14.1 % (11.5-14.5); WHITE BLOOD COUNT 17.1 X10'3 (4.5-11.0)
[2018-12-09 06:12] LABS: ALANINE AMINOTRANSFERASE 30 U/L (12-78); ALBUMIN/GLOBULIN RATIO 0.9 (1.1-1.5); ALKALINE PHOSPHATASE 102 IU/L (46-116); ANION GAP 9 (8-16); ASPARTATE AMINO TRANSFERASE 20 U/L (10-37); BILIRUBIN,TOTAL 0.1 MG/DL (0.1-1.0); BLOOD UREA NITROGEN 16 MG/DL (7-18); BUN/CREATININE RATIO 22.2 (6.6-38.0); CALCIUM 8.5 MG/DL (8.5-10.1); CHLORIDE 104 MMOL/L (99-107); CREATININE 0.72 MG/DL (0.40-0.90); GLUCOSE 142 MG/DL (70-104); POTASSIUM 4.3 MMOL/L (3.5-5.1); SODIUM 138 MMOL/L (135-145); TOTAL CARBON DIOXIDE 24.8 MMOL/L (24-32); TOTAL PROTEIN 6.5 G/DL (6.4-8.2); eGFR 83 ML/MIN
--- NOTE | 2018-12-09 06:30 | NUR ---
report given to YASEMIN Doherty
[2018-12-09] MEDS: BUDESONIDE 0.25 MG/2 ML AMPUL.NEB IH SCH ×2 (06:49→19:26)
--- NOTE | 2018-12-09 06:59 | NUR ---
Patient in room [facility] 356. I have received report from Pat RN and had the opportunity to ask questions and assume patient care.
[2018-12-09 08:00] VITALS: BP 127/73
[2018-12-09] MEDS: cefuroxime axetil 250mg tablet PO SCH ×2 (08:38→20:32)
[2018-12-09] MEDS: methylPREDNISolone sod succ/PF 40mg inj. IV SCH ×2 (08:38→16:30)
[2018-12-09] MEDS: amLODIPine 5mg tablet PO SCH (08:38)
[2018-12-09] MEDS: lactobacillus rhamnosus 10,000 MMU CELLS/CAPSULE PO SCH ×2 (08:38→20:33)
[2018-12-09] MEDS: montelukast 10mg tablet PO SCH (08:38)
[2018-12-09] MEDS: heparin, porcine 5000 units/ml vial SQ SCH ×2 (08:39→20:33)
[2018-12-09] MEDS: normal saline 1000ml 1,000 ML IV SCH (08:42)
[2018-12-09 11:00] VITALS: BP 139/84
[2018-12-09] MEDS: ALPRAZolam 0.5mg tablet PO PRN (14:26)
--- NOTE | 2018-12-09 18:50 | NUR ---
Patient in room [facility] 356. I have received report from Bessy HAZEL and had the opportunity to ask questions and assume patient care. Patient with family eating, appears in no distress.
--- NOTE | 2018-12-09 18:51 | NUR ---
Problems reprioritized. Patient report given, questions answered & plan of care reviewed with Eliza HAZEL.
[2018-12-09 19:00] VITALS: BP 131/91
[2018-12-09] MEDS: mag hydrox/Alum hydrox/simeth 30ml oral suspension PO PRN (19:32)
[2018-12-09] MEDS: LORazepam 0.5 MG tablet PO SCH (22:09)
[2018-12-09] MEDS: famotidine 20mg tablet PO SCH (22:09)
--- NOTE | 2018-12-09 23:15 | NUR ---
PT TRANSFER FROM SURGICAL TO ROOM 4014 B, PT TOLERATED WITH OUT DISTRESS, ORIENTED TO THE ROOM , POSITION OF COMFORT , ASSUMED CARE OF PT Addendum: 12/10/18 at 0404 by Yaquelin Noyola RN Amended: Links added.
--- NOTE | 2018-12-09 23:45 | NUR ---
Arrived from surgical to room 4014b oriented to room and call light. vitals taken.
--- NOTE | 2018-12-09 23:45 | NUR ---
Escorted patient with belongings from 356B to 4014B. Patient stable, alert and oriented. Leah HAZEL received patient and states she will provide midnight medication.
[2018-12-09 23:50] VITALS: BP 139/85
[2018-12-10] MEDS: methylPREDNISolone sod succ/PF 40mg inj. IV SCH ×2 (00:02→09:33)
--- NOTE | 2018-12-10 00:30 | NUR ---
ASSESSMENT OF PT CONTINUES SAME EARLIER THIS SHIFT , NO C/O RESP DISTRESS AT THIS TIME , Addendum: 12/10/18 at 0405 by Yaquelin Noyola RN Amended: Links added.
[2018-12-10] MEDS: acetaminophen w/codeine (30MG) #3 tablet PO SCH ×3 (02:09→14:00)
[2018-12-10] MEDS: ipratropium/albuterol 3ml nebule NEB SCH ×3 (04:15→12:06)
[2018-12-10] MEDS: normal saline 1000ml 1,000 ML IV SCH (05:06)
[2018-12-10 06:00] VITALS: BP 129/82
--- NOTE | 2018-12-10 06:15 | NUR ---
Patient in room ORTHO 4014. I have received report from Yaquelin HAZEL and had the opportunity to ask questions and assume patient care.
[2018-12-10 07:53] LABS: BASOPHILS % (AUTO) 0 % (0-1); EOSINOPHILS # (AUTO) 0.1 X10'3 (0-0.9); EOSINOPHILS % (AUTO) 1.2 % (0-6); HEMATOCRIT 37.6 % (35.0-45.0); HEMOGLOBIN 12.6 g/dl (12.0-16.0); LYMPHOCYTES # (AUTO) 0.5 X10'3 (1.1-4.8); LYMPHOCYTES % (AUTO) 3.7 % (21-51); MEAN CORPUSCULAR HEMOGLOBIN 30.1 PG (27.0-31.0); MEAN CORPUSCULAR HGB CONC 33.5 % (33.0-36.5); MEAN CORPUSCULAR VOLUME 90.1 FL (78-98); MEAN PLATELET VOLUME 6.8 FL (7.4-10.4); MONOCYTES # (AUTO) 0.2 X10'3 (0-0.9); MONOCYTES % (AUTO) 1.8 % (2-12); NEUTROPHILS # (AUTO) 11.4 X10'3 (1.8-7.7); NEUTROPHILS % (AUTO) 93.3 % (42-75); PLATELET COUNT 308 X10'3 (140-440); RED BLOOD COUNT 4.18 X10'6 (4.20-5.60); RED CELL DISTRIBUTION WIDTH 14.4 % (11.5-14.5); WHITE BLOOD COUNT 12.2 X10'3 (4.5-11.0)
[2018-12-10 08:04] LABS: ALANINE AMINOTRANSFERASE 68 U/L (12-78); ALBUMIN 2.9 G/DL (3.4-5.0); ALBUMIN/GLOBULIN RATIO 0.9 (1.1-1.5); ALKALINE PHOSPHATASE 87 IU/L (46-116); ANION GAP 8 (8-16); ASPARTATE AMINO TRANSFERASE 56 U/L (10-37); BILIRUBIN,TOTAL 0.1 MG/DL (0.1-1.0); BLOOD UREA NITROGEN 16 MG/DL (7-18); BUN/CREATININE RATIO 22.5 (6.6-38.0); CALCIUM 8.4 MG/DL (8.5-10.1); CHLORIDE 103 MMOL/L (99-107); CREATININE 0.71 MG/DL (0.40-0.90); GLUCOSE 120 MG/DL (70-104); POTASSIUM 4.4 MMOL/L (3.5-5.1); SODIUM 137 MMOL/L (135-145); TOTAL CARBON DIOXIDE 25.6 MMOL/L (24-32); TOTAL PROTEIN 6.2 G/DL (6.4-8.2); eGFR 85 ML/MIN
[2018-12-10] MEDS: BUDESONIDE 0.25 MG/2 ML AMPUL.NEB IH SCH (08:29)
[2018-12-10] MEDS: heparin, porcine 5000 units/ml vial SQ SCH (09:37)
[2018-12-10] MEDS: montelukast 10mg tablet PO SCH (09:38)
[2018-12-10] MEDS: cefuroxime axetil 250mg tablet PO SCH (09:38)
[2018-12-10] MEDS: lactobacillus rhamnosus 10,000 MMU CELLS/CAPSULE PO SCH (09:38)
[2018-12-10] MEDS: amLODIPine 5mg tablet PO SCH (09:39)
[2018-12-10 10:00] VITALS: BP 152/91
[2018-12-10] MEDS ORDERED: PRED10TA23 PO (12:44)
[2018-12-10] MEDS ORDERED: CEFU250T95 PO (12:44)
[2018-12-10] MEDS ORDERED: MONT10TA24 PO (12:44)
[2018-12-10] MEDS: mag hydrox/Alum hydrox/simeth 30ml oral suspension PO PRN (13:06)
--- NOTE | 2018-12-10 14:55 | NUR ---
Patient discharged to home with all belongings, iv taken out, meds delivered bedside, patient and family member educated on discharge instructions and worsening systems
== END 2018-12-10 15:06 | disposition home or self-care (01) | DRG 140 ==
LOC: ER 01:39 → ED HOLD 05:53 → SUR 3N 10:17 → ORTHO 4S 12-09 23:40
PROVIDERS: ADMIT Internal Medicine; ATTEND Hospitalist
PROC: 3E0234Z Introduction of Serum, Toxoid and Vaccine into Muscle, Percutaneous Approach (ICD-10-PCS; principal; 2018-12-07)
DX: J44.1 Chronic obstructive pulmonary disease with (acute) exacerbation (principal); F12.90 Cannabis use, unspecified, uncomplicated; F17.200 Nicotine dependence, unspecified, uncomplicated; I10 Essential (primary) hypertension; F17.210 Nicotine dependence, cigarettes, uncomplicated; F41.9 Anxiety disorder, unspecified; Z85.41 Personal history of malignant neoplasm of cervix uteri; Z71.6 Tobacco abuse counseling
CPT/HCPCS: 36415; 71045; 80053; 80305; 81003; 83690; 83735; 83880; 84100; 84443; 84484; 85025; 85379; 85610; 87070; 90732; 93005; 94640; 94644; 94760; 96360; 99285; G0378; J1644; J2405; J2920; J2930; J7030

== ENCOUNTER 2019-02-11 04:49 | Emergency (ER) | payer MEDICAID ==
[~2019-02-11] VITALS: Ht 160 cm; Wt 56.8 kg
[~2019-02-11 04:49] MED LIST changes: -ALBU8.5H8 INH; +ASPI-1130 PO; +CEFU250T95 PO; +LISI1TAB13 PO; +MONT10TA24 PO; -PRED5TAB PO
[2019-02-11] MEDS ORDERED: albuterol 2.5 MG/3 ML nebule NEB ONE (05:00)
[2019-02-11] MEDS ORDERED: dexamethasone 4mg tablet PO ONE (05:00)
--- NOTE | 2019-02-11 05:11 | NUR ---
PT REPORTS SYMPTOMS HAVE COME ON SUDDENLY OVERNIGHT AND SHE IS HAVING CHILLS AND HOT FLASHES AND THAT THIS EPISODE OF SOB DOES NOT FEEL LIKE A REGULAR ASTHMA ATTACK.
--- NOTE | 2019-02-11 05:26 | NUR ---
RT AT BEDSIDE, SVN IN PROGRESS, PT WAS GIVEN DECADRON
[2019-02-11] MEDS ORDERED: PRED20TA PO (05:32)
[2019-02-11] MEDS ORDERED: ALBU18HF2 INH (05:32)
[2019-02-11] MEDS ORDERED: DOXY100C43 PO (05:32)
[2019-02-11 06:29] VITALS: BP 120/84
== END 2019-02-11 06:30 | disposition home or self-care (01) ==
LOC: ER 04:50
DX: J45.901 Unspecified asthma with (acute) exacerbation (principal); J06.9 Acute upper respiratory infection, unspecified; I10 Essential (primary) hypertension; J44.9 Chronic obstructive pulmonary disease, unspecified; F17.210 Nicotine dependence, cigarettes, uncomplicated; F12.90 Cannabis use, unspecified, uncomplicated; Z79.82 Long term (current) use of aspirin; Z79.899 Other long term (current) drug therapy
CPT/HCPCS: 93005; 94640; 94760; 99283; J8540

== ENCOUNTER 2019-03-14 10:34 | Emergency (ER) | payer MEDICAID ==
[~2019-03-14] VITALS: Ht 157.5 cm; Wt 56.8 kg
[~2019-03-14 10:34] MED LIST changes: +ALBU18HF2 INH; +PRED20TA PO
[2019-03-14] MEDS ORDERED: levoFLOXACIN 750MG TABLET PO ONE (10:55)
[2019-03-14] MEDS ORDERED: methylPREDNISolone sod succ 125mg/2ml vial IV ONE (10:55)
[2019-03-14] MEDS ORDERED: ipratropium/albuterol 3ml nebule NEB ONE (10:55)
[2019-03-14] MEDS ORDERED: albuterol 2.5 MG/3 ML nebule NEB ONE ×2 (10:55→11:50)
[2019-03-14] MEDS ORDERED: normal saline 1000ml 1,000 ML IV ONE (11:00)
[2019-03-14] MEDS ORDERED: magnesium 2GM in 50ml NS 50 ML IV ONE (11:00)
[2019-03-14] MEDS ORDERED: LORazepam 2 mg/ml vial IV ONE (11:20)
[2019-03-14] MEDS ORDERED: albuterol 2.5 MG/3 ML nebule CONTNEB PRN (11:20)
[2019-03-14 11:29] LABS: BASOPHILS % (AUTO) 0.7 % (0-1); EOSINOPHILS # (AUTO) 0.2 X10'3 (0-0.9); EOSINOPHILS % (AUTO) 3.7 % (0-6); HEMATOCRIT 43.3 % (35.0-45.0); HEMOGLOBIN 14.6 g/dl (12.0-16.0); LYMPHOCYTES # (AUTO) 1.8 X10'3 (1.1-4.8); LYMPHOCYTES % (AUTO) 28.5 % (21-51); MEAN CORPUSCULAR HEMOGLOBIN 29.9 PG (27.0-31.0); MEAN CORPUSCULAR HGB CONC 33.8 g/dL (33.0-36.5); MEAN CORPUSCULAR VOLUME 88.5 FL (78-98); MEAN PLATELET VOLUME 6.7 FL (7.4-10.4); MONOCYTES # (AUTO) 0.6 X10'3 (0-0.9); MONOCYTES % (AUTO) 8.9 % (2-12); NEUTROPHILS # (AUTO) 3.6 X10'3 (1.8-7.7); NEUTROPHILS % (AUTO) 58.2 % (42-75); PLATELET COUNT 320 X10'3 (140-440); RED BLOOD COUNT 4.89 X10'6 (4.20-5.60); RED CELL DISTRIBUTION WIDTH 13.3 % (11.5-14.5); WHITE BLOOD COUNT 6.2 X10'3 (4.5-11.0)
[2019-03-14 11:48] LABS: ALANINE AMINOTRANSFERASE 30 U/L (12-78); ALBUMIN 3.7 G/DL (3.4-5.0); ALBUMIN/GLOBULIN RATIO 1.1 (1.1-1.5); ALKALINE PHOSPHATASE 106 IU/L (46-116); ANION GAP 9 (8-16); ASPARTATE AMINO TRANSFERASE 23 U/L (10-37); BILIRUBIN,TOTAL 0.2 MG/DL (0.1-1.0); BLOOD UREA NITROGEN 10 MG/DL (7-18); BUN/CREATININE RATIO 15.4 (6.6-38.0); CALCIUM 9.1 MG/DL (8.5-10.1); CHLORIDE 96 MMOL/L (99-107); CREATININE 0.65 MG/DL (0.40-0.90); GLUCOSE 112 MG/DL (70-104); POTASSIUM 4.1 MMOL/L (3.5-5.1); SODIUM 130 MMOL/L (135-145); TOTAL CARBON DIOXIDE 24.7 MMOL/L (24-32); eGFR > 90 ML/MIN
[2019-03-14] MEDS ORDERED: ALBU8.5H8 INH (12:51)
[2019-03-14] MEDS ORDERED: ALB0.5UD IH (12:51)
[2019-03-14] MEDS ORDERED: LEVO750T21 PO (12:51)
[2019-03-14] MEDS ORDERED: PRED20TA PO (12:51)
[2019-03-14 12:52] VITALS: BP 148/89
== END 2019-03-14 12:59 | disposition home or self-care (01) ==
LOC: ER 10:35
DX: J44.1 Chronic obstructive pulmonary disease with (acute) exacerbation (principal); I10 Essential (primary) hypertension; F12.90 Cannabis use, unspecified, uncomplicated; Z85.89 Personal history of malignant neoplasm of other organs and systems; Z98.890 Other specified postprocedural states; Z79.82 Long term (current) use of aspirin; Z79.899 Other long term (current) drug therapy
CPT/HCPCS: 36415; 71046; 80053; 85025; 87040; 93005; 94640; 94760; 96365; 96375; 99284; J2930; J3475; J7030

== ENCOUNTER 2019-04-12 19:43 | Inpatient (IN) | payer MEDICAID | END 2019-04-14 13:35 | disposition home or self-care (01) | LOC: ORTHO 4S 04-13 00:06 → ER 19:43 ==

== ENCOUNTER 2019-05-30 07:23 | Inpatient (IN) | payer MEDICAID ==
[~2019-05-30] VITALS: Ht 160 cm; Wt 59.0 kg
[~2019-05-30 07:23] MED LIST changes: +ALBU8.5H8 INH; -AMLO10TA4 PO; -ATI0.5T PO; -CEFU250T95 PO; -MONT10TA24 PO; -PRED20TA PO
[2019-05-30] MEDS ORDERED: ipratropium/albuterol 3ml nebule NEB STA (07:37)
[2019-05-30] MEDS ORDERED: albuterol 2.5 MG/3 ML nebule NEB ONE ×2 (07:55→09:50)
[2019-05-30] MEDS ORDERED: methylPREDNISolone sod succ 125mg/2ml vial IV ONE (07:55)
[2019-05-30] MEDS ORDERED: ipratropium/albuterol 3ml nebule NEB ONE (07:55)
[2019-05-30] MEDS ORDERED: albuterol 2.5 MG/3 ML nebule ONE (08:03)
[2019-05-30 08:09] LABS: ALANINE AMINOTRANSFERASE 53 U/L (12-78); ALBUMIN 3.5 G/DL (3.4-5.0); ALBUMIN/GLOBULIN RATIO 0.8 (1.1-1.5); ALKALINE PHOSPHATASE 144 IU/L (46-116); ANION GAP 9 (8-16); ASPARTATE AMINO TRANSFERASE 46 U/L (10-37); BASOPHILS % (AUTO) 0.2 % (0-1); BILIRUBIN,TOTAL 0.9 MG/DL (0.1-1.0); BLOOD UREA NITROGEN 13 MG/DL (7-18); BUN/CREATININE RATIO 16.7 (6.6-38.0); CALCIUM 9.6 MG/DL (8.5-10.1); CHLORIDE 93 MMOL/L (99-107); CREATININE 0.78 MG/DL (0.40-0.90); EOSINOPHILS % (AUTO) 0.1 % (0-6); GLUCOSE 114 MG/DL (70-104); HEMOGLOBIN 15.6 g/dl (12.0-16.0); LYMPHOCYTES # (AUTO) 1.1 X10'3 (1.1-4.8); LYMPHOCYTES % (AUTO) 5.3 % (21-51); MEAN CORPUSCULAR HEMOGLOBIN 30.1 PG (27.0-31.0); MEAN CORPUSCULAR HGB CONC 33.1 g/dL (33.0-36.5); MEAN PLATELET VOLUME 6.5 FL (7.4-10.4); MONOCYTES % (AUTO) 4.9 % (2-12); NEUTROPHILS # (AUTO) 18.2 X10'3 (1.8-7.7); NEUTROPHILS % (AUTO) 89.5 % (42-75); PLATELET COUNT 328 X10'3 (140-440); POTASSIUM 3.7 MMOL/L (3.5-5.1); RED BLOOD COUNT 5.17 X10'6 (4.20-5.60); RED CELL DISTRIBUTION WIDTH 14.1 % (11.5-14.5); SODIUM 128 MMOL/L (135-145); TOTAL CARBON DIOXIDE 26.1 MMOL/L (24-32); TOTAL PROTEIN 8.1 G/DL (6.4-8.2); WHITE BLOOD COUNT 20.3 X10'3 (4.5-11.0); eGFR 76 ML/MIN
[2019-05-30 08:29] LABS: PARTIAL THROMBOPLASTIN TIME 32 SECONDS (22-32)
[2019-05-30] MEDS ORDERED: ketorolac trometh. 30mg/ml inj. IV ONE (09:00)
[2019-05-30] MEDS ORDERED: iohexol 350MG/ML 100ml bottle IV ONE (09:10)
[2019-05-30] MEDS ORDERED: albuterol 2.5 mg/0.5ml nebule NEB ONE (09:45)
[2019-05-30 10:01] LABS: TOTAL CELLS COUNTED 100
[2019-05-30 10:04] LABS: PLATELET ESTIMATE NORMAL
[2019-05-30] MEDS ORDERED: levoFLOXACIN-Levaquin 750MG/D5 150 ML IV ONE (10:35)
[2019-05-30] MEDS ORDERED: ondansetron/PF 4mg/2ml inj IV PRN (11:25)
[2019-05-30] MEDS: K and/or MAG REPLACEMENT MC SCH (11:25)
[2019-05-30] MEDS ORDERED: magnesium 2GM in 50ml NS 50 ML IV PRN (11:25)
[2019-05-30] MEDS ORDERED: diphenhydrAMINE 25mg capsule PO PRN (11:25)
[2019-05-30] MEDS ORDERED: potassium Cl 20 mEq SR tablet PO PRN ×2 (11:25)
[2019-05-30] MEDS ORDERED: HYDROcodone/acetaminophen 5mg/325mg tablet PO PRN (11:25)
[2019-05-30] MEDS ORDERED: magnesium hydroxide 30ml (MOM) UD suspension PO PRN (11:25)
[2019-05-30] MEDS ORDERED: morphine 2 MG/ML inj. syringe IV PRN ×2 (11:25)
[2019-05-30] MEDS ORDERED: mag hydrox/Alum hydrox/simeth 30ml oral suspension PO PRN (11:25)
[2019-05-30] MEDS ORDERED: potassium Cl 40MEQ/NS 500ml 500 ML IV PRN (11:25)
[2019-05-30] MEDS ORDERED: acetaminophen 325mg tablet PO PRN ×2 (11:25)
[2019-05-30] MEDS ORDERED: magnesium 4gm in 100ml NS 100 ML IV PRN (11:25)
[2019-05-30] MEDS ORDERED: potassium CL 10mEq/100ml bag 100 ML IV PRN (11:25)
[2019-05-30] MEDS ORDERED: magnesium Cl slow-release 64mg tablet PO PRN (11:25)
[2019-05-30] MEDS: normal saline 1000ml 1,000 ML IV SCH ×2 (11:45→23:35)
[2019-05-30 11:55] LABS: HEMOGLOBIN A1C 5.9 % (4.5-6.2)
--- NOTE | 2019-05-30 12:16 | NUR ---
attempted to call report but rn is busy with another pt, will call back.
--- NOTE | 2019-05-30 12:37 | NUR ---
I have received report from YASEMIN Schmitz and had the opportunity to ask questions and assume patient care.
[2019-05-30 13:12] VITALS: BP 122/76
[2019-05-30] MEDS: ipratropium/albuterol 3ml nebule NEB SCH ×3 (15:37→22:52)
[2019-05-30] MEDS: methylPREDNISolone sod succ 125mg/2ml vial IV SCH ×2 (16:46→23:35)
[2019-05-30] MEDS ORDERED: BECL7.3A7 PO (17:28)
[2019-05-30 17:31] LABS: CLARITY,URINE CLEAR (Clear); COLOR,URINE YELLOW (Yellow); GLUCOSE, URINE 250 mg/dl (Neg); KETONES,URINE TRACE mg/dl (Neg); LEUKOCYTE ESTERASE ,URINE NEGATIVE (Neg); NITRITES, URINE NEGATIVE (Neg); OCCULT BLOOD,URINE NEGATIVE (Neg); PH,URINE 5.5 (4.8-8.0); PROTEIN,URINE NEGATIVE (Neg); UROBILINOGEN,URINE 0.2 E.U/dL (0.2-1.0)
[2019-05-30 17:32] LABS: UA COLLECTION TYPE NON-SPECIFIED
[2019-05-30 17:35] LABS: URINE AMPHETAMINE SCREEN POSITIVE (Neg); URINE BARBITUATE SCREEN NEGATIVE (Neg); URINE BENZODIAZEPINES SCREEN NEGATIVE (Neg); URINE CANNABINOID SCREEN NEGATIVE (Neg); URINE COCAINE SCREEN NEGATIVE (Neg); URINE METHADONE SCREEN NEGATIVE (Neg); URINE OPIATE SCREEN POSITIVE (Neg); URINE PHENCYCLIDINE SCREEN NEGATIVE (Neg)
--- NOTE | 2019-05-30 18:08 | NUR ---
Problems reprioritized. Patient report given, questions answered & plan of care reviewed with YASEMIN Mitchell.
[2019-05-30] MEDS: heparin, porcine 5000 units/ml vial SQ SCH (19:12)
[2019-05-30 20:00] VITALS: BP_SYST 116; BP_SYST 162; BP_DIAS 54; BP_DIAS 70
[2019-05-30] MEDS ORDERED: BECLOMETHASONE DIPROPIONATE PO SCH (20:00)
[2019-05-30] MEDS ORDERED: temazepam 15mg capsule PO PRN (21:00)
[2019-05-30] MEDS: budesonide 0.5mg/2ml UD nebule IH SCH (22:52)
[2019-05-31] VITALS: BP 113/73
[2019-05-31] MEDS: ipratropium/albuterol 3ml nebule NEB SCH ×6 (02:45→23:06)
[2019-05-31 05:16] LABS: BASOPHILS % (AUTO) 0.1 % (0-1); EOSINOPHILS % (AUTO) 0 % (0-6); HEMATOCRIT 41.6 % (35.0-45.0); LYMPHOCYTES # (AUTO) 0.4 X10'3 (1.1-4.8); LYMPHOCYTES % (AUTO) 2.2 % (21-51); MEAN CORPUSCULAR HEMOGLOBIN 30.3 PG (27.0-31.0); MEAN CORPUSCULAR HGB CONC 33.6 g/dL (33.0-36.5); MEAN CORPUSCULAR VOLUME 90.1 FL (78-98); MEAN PLATELET VOLUME 7.3 FL (7.4-10.4); MONOCYTES # (AUTO) 0.2 X10'3 (0-0.9); NEUTROPHILS # (AUTO) 19.3 X10'3 (1.8-7.7); NEUTROPHILS % (AUTO) 96.7 % (42-75); PLATELET COUNT 269 X10'3 (140-440); RED BLOOD COUNT 4.62 X10'6 (4.20-5.60); RED CELL DISTRIBUTION WIDTH 13.9 % (11.5-14.5); WHITE BLOOD COUNT 19.9 X10'3 (4.5-11.0)
[2019-05-31 05:49] LABS: ALANINE AMINOTRANSFERASE 37 U/L (12-78); ALBUMIN 2.6 G/DL (3.4-5.0); ALBUMIN/GLOBULIN RATIO 0.6 (1.1-1.5); ALKALINE PHOSPHATASE 130 IU/L (46-116); ANION GAP 10 (8-16); ASPARTATE AMINO TRANSFERASE 18 U/L (10-37); BILIRUBIN,TOTAL 0.1 MG/DL (0.1-1.0); BLOOD UREA NITROGEN 15 MG/DL (7-18); BUN/CREATININE RATIO 21.1 (6.6-38.0); CALCIUM 8.9 MG/DL (8.5-10.1); CHLORIDE 101 MMOL/L (99-107); CHOL/HDL RATIO 3.3 (0.00-4.99); CHOLESTEROL 189 MG/DL (0-200); CREATININE 0.71 MG/DL (0.40-0.90); GLUCOSE 167 MG/DL (70-104); HDL CHOLESTEROL 58 MG/DL (35-60); LDL CHOLESTEROL 113 MG/DL (50-100); PHOSPHORUS 1.7 MG/DL (2.3-4.5); PLATELET ESTIMATE NORMAL; POTASSIUM 3.9 MMOL/L (3.5-5.1); SODIUM 136 MMOL/L (135-145); TOTAL CARBON DIOXIDE 24.8 MMOL/L (24-32); TOTAL CELLS COUNTED 100; TOTAL PROTEIN 6.7 G/DL (6.4-8.2); TRIGLYCERIDES 64 MG/DL (20-135); eGFR 85 ML/MIN
--- NOTE | 2019-05-31 06:50 | NUR ---
Patient in room [facility] 340. I have received report from Paula HAZEL and had the opportunity to ask questions and assume patient care.
[2019-05-31] MEDS: budesonide 0.5mg/2ml UD nebule IH SCH ×2 (06:57→19:19)
[2019-05-31 07:12] VITALS: BP 122/77
[2019-05-31] MEDS: normal saline 1000ml 1,000 ML IV SCH ×2 (07:24→16:37)
[2019-05-31] MEDS: HYDROchlorothiazide 25mg tablet PO SCH (07:31)
[2019-05-31] MEDS: aspirin 81mg tablet.DR PO SCH (07:31)
[2019-05-31] MEDS: lisinopril 20mg tablet PO SCH (07:31)
[2019-05-31] MEDS: methylPREDNISolone sod succ 125mg/2ml vial IV SCH ×2 (07:32→16:36)
[2019-05-31] MEDS: levoFLOXACIN-Levaquin 750MG/D5 150 ML IV SCH (07:32)
[2019-05-31] MEDS: K and/or MAG REPLACEMENT MC SCH (07:32)
[2019-05-31] MEDS: heparin, porcine 5000 units/ml vial SQ SCH ×2 (07:32→20:14)
[2019-05-31] MEDS ORDERED: non-formulary drug (Lisinopril/Hydrochlorothiazide (Lisinopril-Hctz 20-25 mg Tab) 1 TAB) PO SCH (08:00)
[2019-05-31] MEDS: HYDROcodone/acetaminophen 10/325mg tab PO PRN ×3 (09:02→20:19)
[2019-05-31 11:55] VITALS: BP 103/64
[2019-05-31] MEDS: Neutra Phos packet PO SCH ×2 (12:28→20:15)
--- NOTE | 2019-05-31 18:30 | NUR ---
Problems reprioritized. Patient report given, questions answered & plan of care reviewed with Paula HAZEL.
[2019-05-31 20:00] VITALS: BP_SYST 109; BP_SYST 122; BP_DIAS 64; BP_DIAS 83
[2019-05-31] MEDS: lactobacillus rhamnosus 10,000 MMU CELLS/CAPSULE PO SCH (20:14)
--- NOTE | 2019-05-31 20:30 | NUR ---
Sputum collected and sent to laboratory.
[2019-06-01] VITALS: BP_SYST 105
[2019-06-01] MEDS: methylPREDNISolone sod succ 125mg/2ml vial IV SCH ×3 (00:40→20:06)
[2019-06-01] MEDS: ipratropium/albuterol 3ml nebule NEB SCH ×6 (02:53→23:15)
[2019-06-01 04:39] LABS: BASOPHILS % (AUTO) 0.1 % (0-1); EOSINOPHILS % (AUTO) 0 % (0-6); HEMATOCRIT 38.6 % (35.0-45.0); HEMOGLOBIN 12.9 g/dl (12.0-16.0); LYMPHOCYTES # (AUTO) 0.5 X10'3 (1.1-4.8); LYMPHOCYTES % (AUTO) 2.3 % (21-51); MEAN CORPUSCULAR HEMOGLOBIN 30.4 PG (27.0-31.0); MEAN CORPUSCULAR HGB CONC 33.3 g/dL (33.0-36.5); MEAN PLATELET VOLUME 7.2 FL (7.4-10.4); MONOCYTES # (AUTO) 0.5 X10'3 (0-0.9); MONOCYTES % (AUTO) 2.2 % (2-12); NEUTROPHILS # (AUTO) 21.6 X10'3 (1.8-7.7); NEUTROPHILS % (AUTO) 95.4 % (42-75); PLATELET COUNT 337 X10'3 (140-440); RED BLOOD COUNT 4.24 X10'6 (4.20-5.60); RED CELL DISTRIBUTION WIDTH 14.2 % (11.5-14.5); WHITE BLOOD COUNT 22.6 X10'3 (4.5-11.0)
[2019-06-01 05:01] LABS: ALANINE AMINOTRANSFERASE 38 U/L (12-78); ALBUMIN 2.3 G/DL (3.4-5.0); ALBUMIN/GLOBULIN RATIO 0.6 (1.1-1.5); ALKALINE PHOSPHATASE 104 IU/L (46-116); ANION GAP 6 (8-16); ASPARTATE AMINO TRANSFERASE 24 U/L (10-37); BILIRUBIN,TOTAL 0.1 MG/DL (0.1-1.0); BLOOD UREA NITROGEN 19 MG/DL (7-18); BUN/CREATININE RATIO 26.8 (6.6-38.0); CALCIUM 8.9 MG/DL (8.5-10.1); CHLORIDE 103 MMOL/L (99-107); CREATININE 0.71 MG/DL (0.40-0.90); GLUCOSE 152 MG/DL (70-104); PHOSPHORUS 2.8 MG/DL (2.3-4.5); SODIUM 136 MMOL/L (135-145); TOTAL CARBON DIOXIDE 26.7 MMOL/L (24-32); TOTAL PROTEIN 5.9 G/DL (6.4-8.2); eGFR 85 ML/MIN
[2019-06-01] MEDS: normal saline 1000ml 1,000 ML IV SCH ×2 (05:06→13:24)
--- NOTE | 2019-06-01 06:00 | NUR ---
Patient in room [facility] 340. I have received report from Paula HAZEL and had the opportunity to ask questions and assume patient care.
[2019-06-01 06:59] VITALS: BP 119/73
[2019-06-01] MEDS: K and/or MAG REPLACEMENT MC SCH (07:15)
[2019-06-01] MEDS: lactobacillus rhamnosus 10,000 MMU CELLS/CAPSULE PO SCH ×2 (07:21→20:06)
[2019-06-01] MEDS: levoFLOXACIN-Levaquin 750MG/D5 150 ML IV SCH (07:21)
[2019-06-01] MEDS: HYDROchlorothiazide 25mg tablet PO SCH (07:21)
[2019-06-01] MEDS: aspirin 81mg tablet.DR PO SCH (07:22)
[2019-06-01] MEDS: Neutra Phos packet PO SCH ×2 (07:22→12:57)
[2019-06-01] MEDS: lisinopril 20mg tablet PO SCH (07:22)
[2019-06-01] MEDS: heparin, porcine 5000 units/ml vial SQ SCH ×2 (07:22→20:05)
[2019-06-01] MEDS: budesonide 0.5mg/2ml UD nebule IH SCH ×2 (08:05→18:47)
--- NOTE | 2019-06-01 09:09 | NUR ---
I have reviewed and agree with all medications administered and interventions performed by [facility] Student Virginie Wolf Addendum: 06/01/19 at 0910 by Annie White RT Amended: Links added.
--- NOTE | 2019-06-01 11:25 | NUR ---
Dr. Daigle informed of chest xray results. No new orders at this time.
[2019-06-01] MEDS: HYDROcodone/acetaminophen 10/325mg tab PO PRN ×2 (11:43→20:20)
[2019-06-01 11:53] VITALS: BP_SYST 111; BP_SYST 151; BP_DIAS 72; BP_DIAS 76
[2019-06-01 12:17] LABS: BASOPHILS % (AUTO) 0.1 % (0-1); EOSINOPHILS % (AUTO) 0 % (0-6); HEMATOCRIT 39.2 % (35.0-45.0); HEMOGLOBIN 12.8 g/dl (12.0-16.0); LYMPHOCYTES # (AUTO) 0.5 X10'3 (1.1-4.8); LYMPHOCYTES % (AUTO) 2.3 % (21-51); MEAN CORPUSCULAR HGB CONC 32.8 g/dL (33.0-36.5); MEAN CORPUSCULAR VOLUME 91.6 FL (78-98); MEAN PLATELET VOLUME 7.2 FL (7.4-10.4); MONOCYTES # (AUTO) 0.7 X10'3 (0-0.9); NEUTROPHILS # (AUTO) 22.3 X10'3 (1.8-7.7); NEUTROPHILS % (AUTO) 94.6 % (42-75); PLATELET COUNT 358 X10'3 (140-440); RED BLOOD COUNT 4.28 X10'6 (4.20-5.60); RED CELL DISTRIBUTION WIDTH 14.2 % (11.5-14.5); WHITE BLOOD COUNT 23.6 X10'3 (4.5-11.0)
--- NOTE | 2019-06-01 18:16 | NUR ---
Problems reprioritized. Patient report given, questions answered & plan of care reviewed with Prudence RN.
--- NOTE | 2019-06-01 18:42 | NUR ---
Patient in room [facility] 340. I have received report from Audrey HAZEL and had the opportunity to ask questions and assume patient care.
[2019-06-01 19:59] VITALS: BP 138/85
[2019-06-02] VITALS: BP 132/81
[2019-06-02] MEDS: ipratropium/albuterol 3ml nebule NEB SCH ×2 (03:04→07:33)
[2019-06-02 05:02] LABS: BASOPHILS % (AUTO) 0.1 % (0-1); EOSINOPHILS % (AUTO) 0 % (0-6); HEMATOCRIT 39.9 % (35.0-45.0); HEMOGLOBIN 12.9 g/dl (12.0-16.0); LYMPHOCYTES # (AUTO) 0.6 X10'3 (1.1-4.8); LYMPHOCYTES % (AUTO) 2.8 % (21-51); MEAN CORPUSCULAR HEMOGLOBIN 29.5 PG (27.0-31.0); MEAN CORPUSCULAR HGB CONC 32.3 g/dL (33.0-36.5); MEAN CORPUSCULAR VOLUME 91.1 FL (78-98); MONOCYTES # (AUTO) 0.5 X10'3 (0-0.9); MONOCYTES % (AUTO) 2.6 % (2-12); NEUTROPHILS # (AUTO) 18.9 X10'3 (1.8-7.7); NEUTROPHILS % (AUTO) 94.5 % (42-75); PLATELET COUNT 347 X10'3 (140-440); RED BLOOD COUNT 4.38 X10'6 (4.20-5.60); RED CELL DISTRIBUTION WIDTH 13.8 % (11.5-14.5)
[2019-06-02 05:40] LABS: ALANINE AMINOTRANSFERASE 72 U/L (12-78); ALBUMIN 2.3 G/DL (3.4-5.0); ALBUMIN/GLOBULIN RATIO 0.7 (1.1-1.5); ALKALINE PHOSPHATASE 96 IU/L (46-116); ANION GAP 7 (8-16); ASPARTATE AMINO TRANSFERASE 41 U/L (10-37); BILIRUBIN,TOTAL 0.1 MG/DL (0.1-1.0); BLOOD UREA NITROGEN 22 MG/DL (7-18); CALCIUM 8.9 MG/DL (8.5-10.1); CHLORIDE 102 MMOL/L (99-107); CREATININE 0.71 MG/DL (0.40-0.90); GLUCOSE 156 MG/DL (70-104); MAGNESIUM 1.8 MG/DL (1.5-2.4); PHOSPHORUS 2.6 MG/DL (2.3-4.5); POTASSIUM 4.2 MMOL/L (3.5-5.1); SODIUM 136 MMOL/L (135-145); TOTAL CARBON DIOXIDE 26.9 MMOL/L (24-32); TOTAL PROTEIN 5.7 G/DL (6.4-8.2); eGFR 85 ML/MIN
--- NOTE | 2019-06-02 06:27 | NUR ---
Problems reprioritized. Patient report given, questions answered & plan of care reviewed with Carlos RN. Patient slept well and denied having pain.
--- NOTE | 2019-06-02 06:47 | NUR ---
Patient in room [facility] 340. I have received report from Danna HAZEL and had the opportunity to ask questions and assume patient care.
[2019-06-02 07:27] VITALS: BP 144/87
[2019-06-02] MEDS: budesonide 0.5mg/2ml UD nebule IH SCH (07:33)
[2019-06-02] MEDS: lactobacillus rhamnosus 10,000 MMU CELLS/CAPSULE PO SCH (07:46)
[2019-06-02 07:47] VITALS: BP_SYST 144
[2019-06-02] MEDS: lisinopril 20mg tablet PO SCH (07:47)
[2019-06-02] MEDS: HYDROchlorothiazide 25mg tablet PO SCH (07:47)
[2019-06-02] MEDS: methylPREDNISolone sod succ 125mg/2ml vial IV SCH (07:48)
[2019-06-02] MEDS: aspirin 81mg tablet.DR PO SCH (07:48)
[2019-06-02] MEDS: levoFLOXACIN-Levaquin 750MG/D5 150 ML IV SCH (07:48)
[2019-06-02] MEDS: heparin, porcine 5000 units/ml vial SQ SCH (07:49)
[2019-06-02] MEDS: HYDROcodone/acetaminophen 10/325mg tab PO PRN (07:52)
[2019-06-02] MEDS: K and/or MAG REPLACEMENT MC SCH (08:00)
[2019-06-02] MEDS ORDERED: LACT1CAP26 PO (09:31)
[2019-06-02] MEDS ORDERED: PRED10TA23 PO (09:31)
[2019-06-02] MEDS ORDERED: LEVO750T46 PO (09:31)
--- NOTE | 2019-06-02 11:00 | NUR ---
Patient discharge teaching was done in the room with family member at bedside. Patient expressed verbal understanding of teaching on new medications. Patient IV was taken out at discharge canula was whole and intact and site showed minimal bleeding upon removal. Patient stated "I have all my things" at discharge and was taken down stars via wheel chair after [facility]ste[facility] bedside delivered her medications. Patient was transported home in private vehicle.
== END 2019-06-02 11:00 | disposition home or self-care (01) | DRG 133 ==
LOC: ER 07:24 → SUR 3N 12:11 → CMPBEDREQ 05-31 19:48
PROVIDERS: ADMIT Family Medicine; ATTEND Family Medicine
PROC: B32T1ZZ Computerized Tomography (CT Scan) of Left Pulmonary Artery using Low Osmolar Contrast (ICD-10-PCS; principal; 2019-05-30)
PROC: B3201ZZ Computerized Tomography (CT Scan) of Thoracic Aorta using Low Osmolar Contrast (ICD-10-PCS; 2019-05-30)
PROC: B32S1ZZ Computerized Tomography (CT Scan) of Right Pulmonary Artery using Low Osmolar Contrast (ICD-10-PCS; 2019-05-30)
DX: J96.00 Acute respiratory failure, unspecified whether with hypoxia or hypercapnia (principal); J18.9 Pneumonia, unspecified organism; J43.9 Emphysema, unspecified; E87.1 Hypo-osmolality and hyponatremia; F10.10 Alcohol abuse, uncomplicated; F12.10 Cannabis abuse, uncomplicated; F41.9 Anxiety disorder, unspecified; F15.10 Other stimulant abuse, uncomplicated; R00.0 Tachycardia, unspecified; I10 Essential (primary) hypertension; Z60.2 Problems related to living alone; Z79.51 Long term (current) use of inhaled steroids; Z79.82 Long term (current) use of aspirin; Z82.0 Family history of epilepsy and other diseases of the nervous system; Z85.41 Personal history of malignant neoplasm of cervix uteri; Z91.14 Patient's other noncompliance with medication regimen; Z91.19 Patient's noncompliance with other medical treatment and regimen; Z79.899 Other long term (current) drug therapy; Z87.891 Personal history of nicotine dependence; Z71.6 Tobacco abuse counseling
CPT/HCPCS: 36415; 71045; 71046; 71275; 80053; 80061; 80305; 81003; 83036; 83605; 83735; 83880; 84100; 84484; 85025; 85610; 85730; 87040; 87070; 87081; 93005; 93306; 94640; 94760; 96365; 96375; 99285; G0378; J1644; J1885; J1956; J2930; J7030; J7611; J7626; Q9967

== ENCOUNTER 2019-08-01 09:17 | Emergency (ER) | payer MEDICAID ==
[~2019-08-01] VITALS: Ht 160 cm; Wt 62.0 kg
[~2019-08-01 09:17] MED LIST changes: -ALBU18HF2 INH; -ALBU6.7H3 IH; -ALBU8.5H8 INH; +BECL7.3A7 PO; -BUDE10.22 INH; -IPRA3AMP31 IH; +LACT1CAP26 PO; -LISI1TAB13 PO; +LISI1TAB29 PO
[2019-08-01] MEDS ORDERED: albuterol 2.5 MG/3 ML nebule CONTNEB PRN (09:55)
[2019-08-01] MEDS ORDERED: predniSONE 20 mg tablet PO ONE (09:55)
[2019-08-01] MEDS ORDERED: ibuprofen 200mg tablet PO ONE (09:55)
[2019-08-01] MEDS ORDERED: benzonatate 100mg capsule PO ONE (09:55)
--- NOTE | 2019-08-01 10:17 | NUR ---
RT AT BEDSIDE
[2019-08-01] MEDS: ipratropium 0.5 MG/2.5ML nebule IH ONE ×2 (10:53→11:21)
--- NOTE | 2019-08-01 11:19 | NUR ---
CLARIFIED ORDER WITH DOCTOR CJ, SHE DOES ALSO WANT ATROVENT TREATMENT, DISCUSSED PT WHEEZING AFTER RT TREATMENT, WILL HAVE RT PERFORM ATROVENT TREATMENT AND RE-EVALUATE AT 1200
[2019-08-01] MEDS ORDERED: UMEC1DIS INH (11:43)
[2019-08-01 11:54] LABS: BASOPHILS % (AUTO) 0.2 % (0-1); EOSINOPHILS % (AUTO) 0.1 % (0-6); HEMATOCRIT 43.1 % (35.0-45.0); HEMOGLOBIN 14.6 g/dl (12.0-16.0); LYMPHOCYTES # (AUTO) 0.3 X10'3 (1.1-4.8); LYMPHOCYTES % (AUTO) 3.7 % (21-51); MEAN CORPUSCULAR HGB CONC 33.8 g/dL (33.0-36.5); MEAN CORPUSCULAR VOLUME 91.7 FL (78-98); MEAN PLATELET VOLUME 6.5 FL (7.4-10.4); MONOCYTES # (AUTO) 0.1 X10'3 (0-0.9); MONOCYTES % (AUTO) 1.2 % (2-12); NEUTROPHILS # (AUTO) 8.5 X10'3 (1.8-7.7); NEUTROPHILS % (AUTO) 94.8 % (42-75); PLATELET COUNT 307 X10'3 (140-440); RED BLOOD COUNT 4.69 X10'6 (4.20-5.60); RED CELL DISTRIBUTION WIDTH 14.1 % (11.5-14.5); WHITE BLOOD COUNT 8.9 X10'3 (4.5-11.0)
[2019-08-01 12:12] LABS: ALANINE AMINOTRANSFERASE 32 U/L (12-78); ALBUMIN 3.7 G/DL (3.4-5.0); ALBUMIN/GLOBULIN RATIO 1.1 (1.1-1.5); ALKALINE PHOSPHATASE 84 IU/L (46-116); ANION GAP 10 (8-16); ASPARTATE AMINO TRANSFERASE 22 U/L (10-37); BILIRUBIN,TOTAL 0.1 MG/DL (0.1-1.0); BLOOD UREA NITROGEN 12 MG/DL (7-18); BUN/CREATININE RATIO 17.6 (6.6-38.0); CALCIUM 8.8 MG/DL (8.5-10.1); CHLORIDE 101 MMOL/L (99-107); CREATININE 0.68 MG/DL (0.40-0.90); GLUCOSE 123 MG/DL (70-104); POTASSIUM 3.8 MMOL/L (3.5-5.1); SODIUM 136 MMOL/L (135-145); TOTAL CARBON DIOXIDE 24.7 MMOL/L (24-32); TOTAL PROTEIN 7.1 G/DL (6.4-8.2); eGFR 89 ML/MIN
[2019-08-01] MEDS ORDERED: PRED20TA PO (12:15)
[2019-08-01] MEDS ORDERED: GUAI473S11 PO (12:15)
[2019-08-01] MEDS ORDERED: BENZ-16 PO (12:15)
[2019-08-01] MEDS ORDERED: INHA1INH2 (12:15)
[2019-08-01 12:36] VITALS: BP 104/82
[2019-08-02] MEDS ORDERED: PRED20TA PO (15:56)
[2019-08-02] MEDS ORDERED: ALBU18HF2 INH (16:01)
[2019-08-02] MEDS ORDERED: BECL10.62 INH (16:05)
[2019-08-02] MEDS ORDERED: FAMO20TA8 PO (16:15)
== END 2019-08-01 12:38 | disposition home or self-care (01) ==
LOC: ER 09:17
DX: J44.1 Chronic obstructive pulmonary disease with (acute) exacerbation (principal); I10 Essential (primary) hypertension; F41.9 Anxiety disorder, unspecified; F17.200 Nicotine dependence, unspecified, uncomplicated; F10.99 Alcohol use, unspecified with unspecified alcohol-induced disorder; Z98.890 Other specified postprocedural states; Z85.89 Personal history of malignant neoplasm of other organs and systems; Z79.82 Long term (current) use of aspirin; Z79.899 Other long term (current) drug therapy; Y90.9 Presence of alcohol in blood, level not specified
CPT/HCPCS: 36415; 71045; 80053; 84484; 85025; 93005; 94640; 94644; 94760; 99285; J7512

== ENCOUNTER 2019-08-02 12:37 | Inpatient (IN) | payer MEDICAID ==
[~2019-08-02] VITALS: Ht 160 cm; Wt 66.8 kg
[~2019-08-02 12:37] MED LIST changes: +BENZ-16 PO; +GUAI473S11 PO; +INHA1INH2; -LACT1CAP26 PO; +PRED20TA PO; +UMEC1DIS INH; +atropine 0.1mg/ml 10ml syringe ONE; +calcium chloride 100 MG/1 ML inj IV ONE; +dextrose 50%-water 50ml dispensing syringe IV ONE; +epiNEPHrine 0.1mg/ml 10ml syringe ONE; +sodium bicarbonate (8.4%) 1 mEq/ml syringe ONE
[2019-08-02] MEDS ORDERED: methylPREDNISolone sod succ 125mg/2ml vial IV ONE (13:30)
[2019-08-02] MEDS ORDERED: ipratropium/albuterol 3ml nebule NEB ONE (13:40)
[2019-08-02] MEDS ORDERED: magnesium 2GM in 50ml NS 50 ML IV ONE (13:40)
[2019-08-02 13:46] LABS: BASOPHILS % (AUTO) 0.2 % (0-1); EOSINOPHILS % (AUTO) 0.1 % (0-6); HEMOGLOBIN 14.8 g/dl (12.0-16.0); LYMPHOCYTES # (AUTO) 0.5 X10'3 (1.1-4.8); LYMPHOCYTES % (AUTO) 4.5 % (21-51); MEAN CORPUSCULAR HEMOGLOBIN 31.1 PG (27.0-31.0); MEAN CORPUSCULAR HGB CONC 33.7 g/dL (33.0-36.5); MEAN CORPUSCULAR VOLUME 92.5 FL (78-98); MEAN PLATELET VOLUME 6.8 FL (7.4-10.4); MONOCYTES # (AUTO) 0.5 X10'3 (0-0.9); MONOCYTES % (AUTO) 4.5 % (2-12); NEUTROPHILS # (AUTO) 9.1 X10'3 (1.8-7.7); NEUTROPHILS % (AUTO) 90.7 % (42-75); PLATELET COUNT 374 X10'3 (140-440); RED BLOOD COUNT 4.75 X10'6 (4.20-5.60); RED CELL DISTRIBUTION WIDTH 14.1 % (11.5-14.5)
[2019-08-02 13:49] LABS: ALANINE AMINOTRANSFERASE 33 U/L (12-78); ALBUMIN 3.8 G/DL (3.4-5.0); ALKALINE PHOSPHATASE 87 IU/L (46-116); ANION GAP 13 (8-16); ASPARTATE AMINO TRANSFERASE 21 U/L (10-37); BILIRUBIN,TOTAL 0.1 MG/DL (0.1-1.0); BLOOD UREA NITROGEN 13 MG/DL (7-18); BUN/CREATININE RATIO 15.7 (6.6-38.0); CALCIUM 9.2 MG/DL (8.5-10.1); CHLORIDE 100 MMOL/L (99-107); CREATININE 0.83 MG/DL (0.40-0.90); GLUCOSE 123 MG/DL (70-104); SODIUM 138 MMOL/L (135-145); TOTAL CARBON DIOXIDE 25.5 MMOL/L (24-32); TOTAL PROTEIN 7.6 G/DL (6.4-8.2); eGFR 71 ML/MIN
[2019-08-02 13:56] LABS: MAGNESIUM 2.1 MG/DL (1.5-2.4); TROPONIN I < 0.04 NG/ML (0.0-0.05)
[2019-08-02] MEDS ORDERED: magnesium hydroxide 30ml (MOM) UD suspension PO PRN (14:40)
[2019-08-02] MEDS ORDERED: acetaminophen 325mg tablet PO PRN (14:40)
[2019-08-02] MEDS ORDERED: mag hydrox/Alum hydrox/simeth 30ml oral suspension PO PRN (14:40)
[2019-08-02] MEDS ORDERED: morphine 2 MG/ML inj. syringe IV PRN (14:40)
[2019-08-02] MEDS ORDERED: ondansetron/PF 4mg/2ml inj IV PRN (14:40)
[2019-08-02] MEDS ORDERED: acetaminophen 325mg tablet PO ONE (15:10)
[2019-08-02] MEDS ORDERED: PRED20TA PO (15:56)
[2019-08-02] MEDS ORDERED: ALBU18HF2 INH (16:01)
[2019-08-02] MEDS ORDERED: BECL10.62 INH (16:05)
[2019-08-02] MEDS ORDERED: FAMO20TA8 PO (16:15)
--- NOTE | 2019-08-02 16:51 | NUR ---
CAROL HAZEL AT BEDSIDE
[2019-08-02] MEDS ORDERED: famotidine 20mg tablet PO PRN (17:40)
[2019-08-02] MEDS: methylPREDNISolone sod succ 125mg/2ml vial IV SCH (20:01)
[2019-08-02 20:15] VITALS: BP 145/77
--- NOTE | 2019-08-02 20:30 | NUR ---
Received report from Hanna HAZEL in the ER. Pt arrived on the unit at approximately 2029 via gurney. HR 110, RR 22-24, SpO2 93% on R/A with audible wheezing. Pt placed on tele #12. Although Pt calm she was using pursed lipped breathing and appeared to be working to maintain sats. Placed pt on 2L via N/C with some relief. Will continue to monitor.
[2019-08-02] MEDS: albuterol 2.5 MG/3 ML nebule NEB PRN (21:35)
[2019-08-03] VITALS (7 sets, daily range): BP systolic 112–142; BP diastolic 73–88
--- NOTE | 2019-08-03 01:00 | NUR ---
Tele called regarding pt HR in the 130's. Pt was assessed and had gotten up to use the restroom without O2, was sitting on the side of the bed and was again working hard to breathe with pursed lips and in tripod position. Placed pt back on O2, used calming and reassurance to ease pt anxiety. Pt breathing returned to normal. Will continue to monitor.
[2019-08-03] MEDS: methylPREDNISolone sod succ 125mg/2ml vial IV SCH ×5 (02:27→19:00)
[2019-08-03] MEDS: albuterol 2.5 MG/3 ML nebule NEB PRN ×2 (03:28→06:50)
--- NOTE | 2019-08-03 06:33 | NUR ---
Problems reprioritized. Patient report given, questions answered & plan of care reviewed with Zoie HAZEL.
--- NOTE | 2019-08-03 06:59 | NUR ---
Patient in room [facility] 348. I have received report from soheila elmore and had the opportunity to ask questions and assume patient care.
[2019-08-03] MEDS: HYDROchlorothiazide 25mg tablet PO SCH (07:38)
[2019-08-03] MEDS: lisinopril 20mg tablet PO SCH (07:40)
[2019-08-03] MEDS: acetaminophen 325mg tablet PO PRN ×2 (07:48→18:51)
[2019-08-03] MEDS: aspirin 81mg tablet.DR PO SCH (07:50)
--- NOTE | 2019-08-03 10:40 | NUR ---
PATIENT SEEN BY DR SPANGLER,SOLUMEDROL INCREASED AND NEBS CHANGED TO SCHEDULED Q4HRS. WILL CONTINUE TO MONITOR.
[2019-08-03] MEDS ORDERED: albuterol 2.5 MG/3 ML nebule ONE (10:53)
[2019-08-03] MEDS: albuterol 2.5 MG/3 ML nebule NEB SCH ×4 (10:54→23:00)
[2019-08-03] MEDS: montelukast 10mg tablet PO SCH (10:56)
[2019-08-03] MEDS: morphine 2 MG/ML inj. syringe IV PRN (11:47)
--- NOTE | 2019-08-03 11:50 | NUR ---
RT Hugo and [employer] aware patient needs to transfer to Tele on Bipap, Ok to start patient on bipap on surgical until a room becomes available. RT to titrate to patients comfort
--- NOTE | 2019-08-03 12:11 | NUR ---
Patient seen again by Dr Cruz as laboring to breathe using accessory muscles, and keeps taking O2 off to walk to BR. patient cautioned about this. Stated she understands. RT paged to place patient on BIPAP. SOUTH kitchen. Report called to Andreina HAZEL on PCU where patient is to be transferred to room 3013A.
--- NOTE | 2019-08-03 12:30 | NUR ---
Assumed patient care at 1230. Patient arrived in stable condition. Placed patient on mobile tele and obtained vital signs. Spo2 99% on 2/L via NC.
--- NOTE | 2019-08-03 12:58 | NUR ---
1230 patient transferred to [facility], report given to Oralia who was at bedside.
--- NOTE | 2019-08-03 13:12 | NUR ---
Assisted patient to transfer 3013A. Patient stable during transfer.
--- NOTE | 2019-08-03 13:22 | NUR ---
paged Dr. Cruz PAGER ID: [phone] MESSAGE: [id number] Sangita Porter done: pH-7.44 C02-33.1 O2-101 HCO3-22 patient not on bipap currently. please advise Kathi HAZEL [phone]
--- NOTE | 2019-08-03 18:00 | NUR ---
Patient in room PCU 3013. I have received report from Kathi HAZEL and had the opportunity to ask questions and assume patient care.
--- NOTE | 2019-08-03 18:24 | NUR ---
I have reviewed and agree with all interventions, assessments performed and documented by Andreina HAZEL.
[2019-08-04] VITALS (7 sets, daily range): BP systolic 90–134; BP diastolic 57–89
[2019-08-04] MEDS: methylPREDNISolone sod succ 125mg/2ml vial IV SCH ×4 (01:18→20:31)
[2019-08-04] MEDS: morphine 2 MG/ML inj. syringe IV PRN ×7 (01:26→23:19)
[2019-08-04] MEDS: albuterol 2.5 MG/3 ML nebule NEB SCH ×6 (02:36→23:20)
--- NOTE | 2019-08-04 05:00 | NUR ---
Patient has slept well tonight without BiPAP. Will continue to monitor.
--- NOTE | 2019-08-04 06:10 | NUR ---
Patient in room PCU 3013. I have received report from Chantel and had the opportunity to ask questions and assume patient care.
--- NOTE | 2019-08-04 06:19 | NUR ---
Problems reprioritized. Patient report given, questions answered & plan of care reviewed with Chayo HAZEL.
[2019-08-04] MEDS: HYDROchlorothiazide 25mg tablet PO SCH (07:43)
[2019-08-04] MEDS: montelukast 10mg tablet PO SCH (07:43)
[2019-08-04] MEDS: pantoprazole 40mg Tablet.DR PO SCH (07:43)
[2019-08-04] MEDS: aspirin 81mg tablet.DR PO SCH (07:44)
[2019-08-04] MEDS: lisinopril 20mg tablet PO SCH (07:45)
[2019-08-04 08:30] LABS: ABG BASE EXCESS -1.3 mmol/L (-2.0-3.0); ABG OXYGEN SATURATION 97.8 % (95-98); ABG PCO2 (T) 33.1 mmHg (35.0-45.0); ALLEN'S TEST Positive; FCOHb 0.3 % (0.5-1.5); FLOW 2 L/min; FMetHb 0.2 % (0.3-1.12); FO2Hb 97.3 % (94-100); TOTAL HEMOGLOBIN 15.7 G/dl (12.0-16.0)
--- NOTE | 2019-08-04 08:47 | NUR ---
Dr Cruz at bedside, had patient put bipap back on, cannot be house convenienced at this time as she still requires bipap. However she does not need telemetry per Dr. Cruz, telemetry DC'd
--- NOTE | 2019-08-04 10:14 | NUR ---
PAGER ID: [phone] MESSAGE: YASEMIN Domingo, ext [phone], [phone], Porter, patient states she feels like she is suffocating on bipap and that it is not helping. She is requesting a second doctor's opinion. last morphine was 8:30
--- NOTE | 2019-08-04 16:04 | NUR ---
PAGER ID: [phone] MESSAGE: YASEMIN Domingo, ext [phone], [phone], Porter. Patient's HR is 144, also ax temp 99.4. not currently on tele. Do you want to restart tele or get an EKG?
--- NOTE | 2019-08-04 16:29 | NUR ---
PAGER ID: [phone] MESSAGE: [id number] Sangita Porter, EKG completed and showing sinus tach. YASEMIN Hdz [phone]
--- NOTE | 2019-08-04 16:41 | NUR ---
Spoke with Dr. Cruz regarding patient's tachycardia, he believes it is related to patient's albuterol use, wants to see if RT has other options available to give her instead.
--- NOTE | 2019-08-04 16:43 | NUR ---
RT paged: [phone], patient is tachycardic, Dr Cruz wants to know if there is an option for her to replace the albuterol
--- NOTE | 2019-08-04 16:49 | NUR ---
PAGER ID: [phone] MESSAGE: YASEMIN Domingo ext [phone], [phone], Porter, patient states she wants to go on vent, breathing too difficult. RT says they can give Xopenex instead of albuterol. Please advise
--- NOTE | 2019-08-04 18:30 | NUR ---
Patient in room PCU 3013. I have received report from Chayo RN and Latoya RN and had the opportunity to ask questions and assume patient care. Checked on patient, she is resting comfortably, getting her set up on mobile telemetry, vitals are stable.
--- NOTE | 2019-08-04 18:38 | NUR ---
[place]rientee documentation: I have reviewed and agree with all interventions, assessments performed and documented by YASEMIN Klein.
--- NOTE | 2019-08-04 18:38 | NUR ---
Problems reprioritized. Patient report given, questions answered & plan of care reviewed with YASEMIN Antonio. patient currently resting in bed, on 2 L NC, no acute distress, stable at shift change
--- NOTE | 2019-08-04 19:19 | NUR ---
Patient's came into her room, rudely insisting on his seeing a "specialist who can deal with her breathing issues because she is not getting better." Patient was receiving O2 therapy by RT and her O2 levels were at 97%. I assured him RT would be working with her throughout the evening and we would be monitoring her closely. I also explained that her dosage of solumedrol was being increased.
[2019-08-05] VITALS (31 sets, daily range): BP systolic 71–134; BP diastolic 42–77
[2019-08-05] MEDS: methylPREDNISolone sod succ 125mg/2ml vial IV SCH ×4 (02:02→19:59)
[2019-08-05] MEDS: morphine 2 MG/ML inj. syringe IV PRN ×3 (02:03→07:40)
[2019-08-05] MEDS: albuterol 2.5 MG/3 ML nebule NEB SCH ×3 (03:44→10:50)
--- NOTE | 2019-08-05 06:45 | NUR ---
Patient in room PCU 3013. I have received report from Chayo HAZEL and had the opportunity to ask questions and assume patient care.
--- NOTE | 2019-08-05 07:12 | NUR ---
Patient in room PCU 3013. I have received report from YASEMIN Antonio via telephone and had the opportunity to ask questions and assume patient care. Patient is currently reporting SOB, on NC @2LPM, RT in room, patient VSS, will continue to monitor.
[2019-08-05] MEDS: lisinopril 20mg tablet PO SCH (07:48)
[2019-08-05] MEDS: HYDROchlorothiazide 25mg tablet PO SCH (07:48)
[2019-08-05] MEDS: montelukast 10mg tablet PO SCH (07:49)
[2019-08-05] MEDS: aspirin 81mg tablet.DR PO SCH (07:49)
[2019-08-05] MEDS: pantoprazole 40mg Tablet.DR PO SCH (07:49)
[2019-08-05] MEDS ORDERED: chlordiazePOXIDE 25mg capsule PO PRN (09:05)
--- NOTE | 2019-08-05 10:39 | NUR ---
PAGER ID: [phone] MESSAGE: YASEMIN Domingo, ext [phone], [phone], Porter, HR 160s sustained and SPO2 in mid-80s on Bipap.
--- NOTE | 2019-08-05 10:39 | NUR ---
Dr. Cruz responded to page, says he will have Dr. Bedolla come up to assess the patient and she may require intubation.
--- NOTE | 2019-08-05 10:46 | NUR ---
PAGER ID: [phone] MESSAGE: YASEMIN Domingo, ext [phone], [phone], Porter, patient at bedside, patient having hand tremors, states she normally drinks a 12pack a day and has never gone without it in the 17 years they have been . need withdrawal protocol
--- NOTE | 2019-08-05 10:48 | NUR ---
Dr. Cruz ordered ABG, does not want ETOH withdrawal protocol at this time
[2019-08-05] MEDS ORDERED: midazolam 2 mg/2 ml injection ONE ×2 (11:09→11:11)
[2019-08-05] MEDS ORDERED: MIDAZolam 5mg/ml 2ml vial IV ONE (11:10)
[2019-08-05] MEDS ORDERED: midazolam 100mg in NS 100ml 100 ML IV PRN (11:20)
[2019-08-05] MEDS ORDERED: NORepinephrine 8mg/ 250ml NS 250 ML IV ONE ×3 (11:26→20:12)
[2019-08-05] MEDS ORDERED: etomidate 2mg/ml inj. IV ONE (11:45)
[2019-08-05] MEDS ORDERED: rocuronium 10mg/ml inj IV ONE (11:45)
[2019-08-05] MEDS: FENTANYL-0.9 % NACL/PF 100 ML IV PRN (11:47)
--- NOTE | 2019-08-05 11:50 | NUR ---
Problems reprioritized. Patient report given, questions answered & plan of care reviewed with ICU nurse. Patient transferred due to severe dyspnea and elevated HR.
--- NOTE | 2019-08-05 11:50 | NUR ---
Received patient from [facility]. Dr todd mueller intubated patient without complication, then placed an arterial linga Addendum: 08/06/19 at 1431 by Rosa Hilton RN placed an arterial line and central line without complication. bp low started levophed at 08/05 at 1150
--- NOTE | 2019-08-05 11:50 | NUR ---
Student documentation: I have reviewed interventions, assessments performed and documented by Chavez [facility].
[2019-08-05 12:05] LABS: BASOPHILS % (AUTO) 0 % (0-1); EOSINOPHILS # (AUTO) 0.1 X10'3 (0-0.9); EOSINOPHILS % (AUTO) 0.5 % (0-6); HEMATOCRIT 45.2 % (35.0-45.0); HEMOGLOBIN 15.2 g/dl (12.0-16.0); LYMPHOCYTES # (AUTO) 0.1 X10'3 (1.1-4.8); LYMPHOCYTES % (AUTO) 0.8 % (21-51); MEAN CORPUSCULAR HEMOGLOBIN 30.8 PG (27.0-31.0); MEAN CORPUSCULAR HGB CONC 33.6 g/dL (33.0-36.5); MEAN CORPUSCULAR VOLUME 91.9 FL (78-98); MEAN PLATELET VOLUME 6.8 FL (7.4-10.4); MONOCYTES # (AUTO) 0.1 X10'3 (0-0.9); NEUTROPHILS # (AUTO) 10.5 X10'3 (1.8-7.7); NEUTROPHILS % (AUTO) 97.7 % (42-75); PLATELET COUNT 259 X10'3 (140-440); RED BLOOD COUNT 4.92 X10'6 (4.20-5.60); RED CELL DISTRIBUTION WIDTH 14.4 % (11.5-14.5); WHITE BLOOD COUNT 10.8 X10'3 (4.5-11.0)
[2019-08-05 12:05] LABS: ABG BASE EXCESS -8.1 mmol/L (-2.0-3.0); ABG HCO3 20.2 mmol/L (22.0-26.0); ABG OXYGEN SATURATION 98.1 % (95-98); ABG PCO2 (T) 54.1 mmHg (35.0-45.0); ABG PH (T) 7.195 (7.350-7.450); ABG PO2 (T) 126.9 mmHg (83-108); FCOHb 0.7 % (0.5-1.5); FMetHb 0.4 % (0.3-1.12); MINUTE VOLUME 7 L/min; PATIENT TEMPERATURE 38.1; PEEP 5 cm H2O; RESPIRATORY RATE 20 b/min; RESPIRATORY RATE (OBSERVED) 20 b/min; TIDAL VOLUME 350 mL; TOTAL HEMOGLOBIN 16.8 G/dl (12.0-16.0)
[2019-08-05 12:11] LABS: OXYGEN SATURATION (MIXED VEN) 84.5 % (60-80); PO2 MIXED VENOUS (TEMP COR) 62.9 mmHg (35-46)
[2019-08-05 12:19] LABS: PARTIAL THROMBOPLASTIN TIME 32 SECONDS (22-32)
[2019-08-05 12:22] LABS: ALANINE AMINOTRANSFERASE 30 U/L (12-78); ALBUMIN 2.2 G/DL (3.4-5.0); ALBUMIN/GLOBULIN RATIO 0.6 (1.1-1.5); ALKALINE PHOSPHATASE 48 IU/L (46-116); ANION GAP 12 (8-16); ASPARTATE AMINO TRANSFERASE 41 U/L (10-37); BILIRUBIN,TOTAL 0.5 MG/DL (0.1-1.0); BLOOD UREA NITROGEN 61 MG/DL (7-18); BUN/CREATININE RATIO 14.8 (6.6-38.0); CHLORIDE 91 MMOL/L (99-107); CREATININE 4.12 MG/DL (0.40-0.90); GLUCOSE 125 MG/DL (70-104); SODIUM 125 MMOL/L (135-145); TOTAL CARBON DIOXIDE 21.7 MMOL/L (24-32); TOTAL PROTEIN 5.9 G/DL (6.4-8.2); eGFR 11 ML/MIN
[2019-08-05 12:24] LABS: AMYLASE 27 U/L (25-115); LIPASE < 50 U/L (73-393); TROPONIN I < 0.04 NG/ML (0.0-0.05)
[2019-08-05 12:25] LABS: POTASSIUM 5.8 MMOL/L (3.5-5.1)
[2019-08-05] MEDS ORDERED: haloperidol lactate 5mg/ml inj IM PRN (12:25)
[2019-08-05] MEDS ORDERED: magnesium Cl slow-release 64mg tablet PO PRN (12:25)
[2019-08-05] MEDS ORDERED: sodium phosphate inj. 15 MMOL in dextrose 5%-water 150 ML IV PRN (12:25)
[2019-08-05] MEDS ORDERED: potassium Cl 20 mEq SR tablet PO PRN ×2 (12:25)
[2019-08-05] MEDS ORDERED: sodium phosphate inj. 30 MMOL in dextrose 5%-water 250 ML IV PRN (12:25)
[2019-08-05] MEDS ORDERED: haloperidol 5mg tablet PO PRN (12:25)
[2019-08-05] MEDS: nicotine 21mg patch - 24 hr TD SCH (12:25)
[2019-08-05] MEDS ORDERED: MVI, adult No.4 with vit. K 10 ML in dextrose 5% water 500ml 500 ML IV SCH ×2 (12:25)
[2019-08-05] MEDS ORDERED: potassium CL 10mEq/100ml bag 100 ML IV PRN ×2 (12:25)
[2019-08-05] MEDS ORDERED: Neutra Phos packet PO PRN (12:25)
[2019-08-05] MEDS ORDERED: magnesium 2GM in 50ml NS 50 ML IV PRN (12:25)
[2019-08-05] MEDS ORDERED: ondansetron/PF 4mg/2ml inj IV PRN (12:25)
[2019-08-05] MEDS ORDERED: acetaminophen 325mg tablet PO PRN ×2 (12:25)
[2019-08-05] MEDS ORDERED: magnesium 4gm in 100ml NS 100 ML IV PRN ×2 (12:25→13:30)
[2019-08-05] MEDS ORDERED: ipratropium/albuterol 3ml nebule NEB PRN (12:25)
[2019-08-05] MEDS ORDERED: magnesium hydroxide 30ml (MOM) UD suspension PO PRN (12:25)
[2019-08-05] MEDS ORDERED: thiamine inj. 100 MG, folic acid inj. 2 MG in normal saline 100ml IV soln 100 ML IV SCH (12:38)
[2019-08-05] MEDS ORDERED: dextrose 50%-water 50ml dispensing syringe IV ONE (13:10)
[2019-08-05] MEDS ORDERED: insulin regular, human 10 units/0.1 ml syringe IV ONE (13:10)
[2019-08-05] MEDS ORDERED: vancomycin/NS 1 GM ADD-VANTAGE 250 ML IV ONE (13:25)
[2019-08-05] MEDS ORDERED: heparin 25,000 UNIT/250ml bag 250 ML IV SCH (13:28)
[2019-08-05] MEDS ORDERED: vancomycin/NS 1 GM ADD-VANTAGE 250 ML IV PRN (13:30)
[2019-08-05] MEDS ORDERED: heparin 10,000 units/1 ML INJ IV PRN (13:30)
[2019-08-05] MEDS ORDERED: potassium Cl 20mEq/100mL bag 100 ML IV PRN (13:30)
[2019-08-05] MEDS ORDERED: calcium chloride inj. 1,000 MG in normal saline 100ml IV soln 100 ML IV PRN (13:30)
[2019-08-05] MEDS ORDERED: heparin 10,000 units/1 ML INJ IV ONE (13:30)
[2019-08-05] MEDS ORDERED: sodium phosphate inj. 30 MMOL in normal saline 250ml IV soln 250 ML IV PRN (13:30)
[2019-08-05] MEDS: piperacillin/tazo 3.375gm/50ml 50 ML IV SCH ×2 (13:35→16:00)
[2019-08-05] MEDS ORDERED: bicarb dialysis sol 2K+/3 Ca2+ 5,000 ML HE SCH (13:40)
--- NOTE | 2019-08-05 13:57 | NUR ---
Tube feeding consult: Patient 0% intake for one day on 08/04, 100% PO intake the day prior on 08/03 of regular diet. The regular diet is now completed and tube feeding consult in. Patient had presented to ED with worsening shortness of breath over 4 days, has history of asthma and heavy EtOH, is receiving banana bag. Per MD note admitted for acute exacerbation of COPD/asthma. After at risk paraprofessional evaluation patient was intubated. Recommendations below for tube feeding. Recommend: 1. Recommend continues tube feeding using Vital AF at goal rate of 65 ml/hr to provide total volume 1560 ml, total 1872 cals, 117 gm protein, and 1265 ml water. 2. Hold water flushes, sodium 125 3. Prealbumin q Friday and 4. Daily weights Addendum: 08/05/19 at [address] Amended: Links added.
[2019-08-05] MEDS ORDERED: piperacillin/tazo 4.5gm/100ml 100 ML IV SCH (14:00)
[2019-08-05 14:27] LABS: CREATINE KINASE 331 U/L (26-192)
[2019-08-05] MEDS: ipratropium/albuterol 3ml nebule NEB SCH ×3 (14:44→23:12)
[2019-08-05] MEDS: dextrose 50%-water 50ml dispensing syringe IV PRN (15:26)
[2019-08-05 15:46] LABS: ABG BASE EXCESS -14.7 mmol/L (-2.0-3.0); ABG HCO3 14.9 mmol/L (22.0-26.0); ABG OXYGEN SATURATION 97.3 % (95-98); ABG PCO2 (T) 49.5 mmHg (35.0-45.0); ABG PH (T) 7.095 (7.350-7.450); ABG PO2 (T) 122.5 mmHg (83-108); FMetHb 0.3 % (0.3-1.12); PEEP 5 cm H2O; RESPIRATORY RATE 22 b/min; RESPIRATORY RATE (OBSERVED) 22 b/min; TIDAL VOLUME 375 mL; TOTAL HEMOGLOBIN 13.2 G/dl (12.0-16.0)
--- NOTE | 2019-08-05 16:00 | NUR ---
bp still low patient is on vasopressin and levophed labs done and Md aware. orders received several times throughout shift
[2019-08-05 16:12] LABS: BASOPHILS % (AUTO) 0.1 % (0-1); EOSINOPHILS # (AUTO) 0.1 X10'3 (0-0.9); EOSINOPHILS % (AUTO) 1.5 % (0-6); HEMATOCRIT 39.5 % (35.0-45.0); HEMOGLOBIN 12.9 g/dl (12.0-16.0); LYMPHOCYTES # (AUTO) 0.1 X10'3 (1.1-4.8); LYMPHOCYTES % (AUTO) 3.4 % (21-51); MEAN CORPUSCULAR HEMOGLOBIN 30.7 PG (27.0-31.0); MEAN CORPUSCULAR HGB CONC 32.6 g/dL (33.0-36.5); MONOCYTES # (AUTO) 0.1 X10'3 (0-0.9); MONOCYTES % (AUTO) 1.3 % (2-12); NEUTROPHILS # (AUTO) 3.6 X10'3 (1.8-7.7); NEUTROPHILS % (AUTO) 93.7 % (42-75); PLATELET COUNT 192 X10'3 (140-440); RED BLOOD COUNT 4.21 X10'6 (4.20-5.60); RED CELL DISTRIBUTION WIDTH 14.5 % (11.5-14.5); WHITE BLOOD COUNT 3.8 X10'3 (4.5-11.0)
[2019-08-05 16:21] LABS: ALBUMIN 1.5 G/DL (3.4-5.0); ANION GAP 14 (8-16); BLOOD UREA NITROGEN 54 MG/DL (7-18); BUN/CREATININE RATIO 14.8 (6.6-38.0); CHLORIDE 99 MMOL/L (99-107); CREATININE 3.66 MG/DL (0.40-0.90); GLUCOSE 171 MG/DL (70-104); MAGNESIUM 2.6 MG/DL (1.5-2.4); PHOSPHORUS 5.9 MG/DL (2.3-4.5); POTASSIUM 4.6 MMOL/L (3.5-5.1); SODIUM 129 MMOL/L (135-145); TOTAL CARBON DIOXIDE 15.8 MMOL/L (24-32); eGFR 13 ML/MIN
[2019-08-05] MEDS ORDERED: DOBUTamine-DoBUTrex 500mg/D5W 250 ML IV SCH (16:40)
[2019-08-05] MEDS ORDERED: DOBUTamine-DoBUTrex 500mg/D5W 250 ML IV ONE (16:47)
[2019-08-05] MEDS: vasopressin inj. 20 UNIT in normal saline 100ml IV soln 39 ML IV SCH ×3 (17:07→18:54)
[2019-08-05] MEDS ORDERED: normal saline 1000ml 1,000 ML IV ONE (17:15)
[2019-08-05 17:24] LABS: BASOPHILS % (AUTO) 0.1 % (0-1); EOSINOPHILS # (AUTO) 0.1 X10'3 (0-0.9); EOSINOPHILS % (AUTO) 1.4 % (0-6); HEMATOCRIT 39.2 % (35.0-45.0); HEMOGLOBIN 12.8 g/dl (12.0-16.0); LYMPHOCYTES # (AUTO) 0.2 X10'3 (1.1-4.8); LYMPHOCYTES % (AUTO) 5.2 % (21-51); MEAN CORPUSCULAR HEMOGLOBIN 30.6 PG (27.0-31.0); MEAN CORPUSCULAR HGB CONC 32.6 g/dL (33.0-36.5); MEAN CORPUSCULAR VOLUME 93.9 FL (78-98); MONOCYTES # (AUTO) 0.1 X10'3 (0-0.9); MONOCYTES % (AUTO) 2.3 % (2-12); NEUTROPHILS # (AUTO) 4.1 X10'3 (1.8-7.7); PLATELET COUNT 169 X10'3 (140-440); RED BLOOD COUNT 4.17 X10'6 (4.20-5.60); RED CELL DISTRIBUTION WIDTH 14.6 % (11.5-14.5); WHITE BLOOD COUNT 4.5 X10'3 (4.5-11.0)
[2019-08-05] MEDS: normal saline 1000ml 1,000 ML IV SCH (17:33)
[2019-08-05 17:34] LABS: ALBUMIN 1.3 G/DL (3.4-5.0); ANION GAP 16 (8-16); BLOOD UREA NITROGEN 49 MG/DL (7-18); BUN/CREATININE RATIO 14.8 (6.6-38.0); CHLORIDE 101 MMOL/L (99-107); GLUCOSE 78 MG/DL (70-104); MAGNESIUM 2.6 MG/DL (1.5-2.4); PHOSPHORUS 8.8 MG/DL (2.3-4.5); POTASSIUM 5.9 MMOL/L (3.5-5.1); SODIUM 131 MMOL/L (135-145); eGFR 14 ML/MIN
--- NOTE | 2019-08-05 18:15 | NUR ---
Problems reprioritized. Patient report given, questions answered & plan of care reviewed with oncomcameron post, patient now on CVVH.
[2019-08-05 18:22] LABS: PLATELET ESTIMATE NORMAL; TOTAL CELLS COUNTED 100
[2019-08-05 18:23] LABS: BURR CELLS 1+; POLYCHROMASIA FEW
[2019-08-05 18:25] LABS: TOXIC GRANULATION 2+; TOXIC VACUOLATION 2+
[2019-08-05 18:26] LABS: GIANT PLATELET FEW
[2019-08-05 18:45] LABS: ANION GAP 17 (8-16); BLOOD UREA NITROGEN 47 MG/DL (7-18); CHLORIDE 104 MMOL/L (99-107); CREATININE 3.13 MG/DL (0.40-0.90); GLUCOSE 105 MG/DL (70-104); MAGNESIUM 2.1 MG/DL (1.5-2.4); PHOSPHORUS 8.3 MG/DL (2.3-4.5); POTASSIUM 3.8 MMOL/L (3.5-5.1); SODIUM 134 MMOL/L (135-145); eGFR 15 ML/MIN
[2019-08-05 18:53] LABS: TOTAL CARBON DIOXIDE 12.9 MMOL/L (24-32)
[2019-08-05 19:07] LABS: BASOPHILS % (AUTO) 0.1 % (0-1); EOSINOPHILS % (AUTO) 1.6 % (0-6); HEMATOCRIT 33.7 % (35.0-45.0); HEMOGLOBIN 11.2 g/dl (12.0-16.0); LYMPHOCYTES # (AUTO) 0.2 X10'3 (1.1-4.8); LYMPHOCYTES % (AUTO) 6.2 % (21-51); MEAN CORPUSCULAR HEMOGLOBIN 31.5 PG (27.0-31.0); MEAN CORPUSCULAR HGB CONC 33.3 g/dL (33.0-36.5); MEAN CORPUSCULAR VOLUME 94.6 FL (78-98); MEAN PLATELET VOLUME 6.9 FL (7.4-10.4); MONOCYTES # (AUTO) 0.1 X10'3 (0-0.9); MONOCYTES % (AUTO) 2.7 % (2-12); NEUTROPHILS # (AUTO) 2.3 X10'3 (1.8-7.7); NEUTROPHILS % (AUTO) 89.4 % (42-75); PLATELET COUNT 107 X10'3 (140-440); RED BLOOD COUNT 3.57 X10'6 (4.20-5.60); RED CELL DISTRIBUTION WIDTH 14.4 % (11.5-14.5); WHITE BLOOD COUNT 2.6 X10'3 (4.5-11.0)
[2019-08-05 19:22] LABS: ANION GAP 16 (8-16); BLOOD UREA NITROGEN 51 MG/DL (7-18); BUN/CREATININE RATIO 15.3 (6.6-38.0); CHLORIDE 102 MMOL/L (99-107); CREATININE 3.33 MG/DL (0.40-0.90); GLUCOSE 122 MG/DL (70-104); MAGNESIUM 2.2 MG/DL (1.5-2.4); PHOSPHORUS 8.9 MG/DL (2.3-4.5); POTASSIUM 4.7 MMOL/L (3.5-5.1); SODIUM 132 MMOL/L (135-145); eGFR 14 ML/MIN
[2019-08-05 19:30] LABS: TOTAL CARBON DIOXIDE 13.6 MMOL/L (24-32)
[2019-08-05 19:37] LABS: TOTAL CELLS COUNTED 100
[2019-08-05 19:39] LABS: LARGE PLATELETS FEW; PLATELET ESTIMATE DECREASED
[2019-08-05 19:40] LABS: TOXIC GRANULATION 1+; TOXIC VACUOLATION 2+
[2019-08-05] MEDS ORDERED: tPA-cathflo 2 MG/2 ml IV flush IVF ONE (19:40)
[2019-08-05] MEDS ORDERED: calcium chloride inj. 1,000 MG in normal saline 100ml IV soln 90 ML IV ONE (20:25)
[2019-08-05 20:50] LABS: ABG BASE EXCESS -20.4 mmol/L (-2.0-3.0); ABG HCO3 9.9 mmol/L (22.0-26.0); ABG OXYGEN SATURATION 94.1 % (95-98); ABG PCO2 (T) 36.2 mmHg (35.0-45.0); ABG PH (T) 7.041 (7.350-7.450); ABG PO2 (T) 77.3 mmHg (83-108); FCOHb 0.3 % (0.5-1.5); FMetHb 0.1 % (0.3-1.12); FO2Hb 93.7 % (94-100); MINUTE VOLUME 10 L/min; PEEP 5 cm H2O; TIDAL VOLUME 375 mL; TOTAL HEMOGLOBIN 13.2 G/dl (12.0-16.0)
[2019-08-05] MEDS: NORepinephrine 8mg/ 250ml NS 250 ML IV SCH ×2 (20:59→23:00)
[2019-08-05] MEDS ORDERED: albumin (Human) 5% 250ml 500 ML IV ONE (22:40)
[2019-08-05] MEDS ORDERED: albumin (Human) 5% 250ml 250 ML IV ONE ×2 (22:40)
[2019-08-05] MEDS: budesonide 0.5mg/2ml UD nebule IH SCH (23:12)
[2019-08-06] VITALS (9 sets, daily range): BP systolic 62–99; BP diastolic 30–45
[2019-08-06] MEDS ORDERED: sodium bicarbonate (8.4%) inj. 1 MEQ/ML ML ONE ×2 (00:04→04:12)
[2019-08-06] MEDS ORDERED: sodium bicarbonate (8.4%) 1 mEq/ml syringe IV ONE ×4 (00:05→07:25)
[2019-08-06] MEDS ORDERED: calcium chloride 100 MG/1 ML inj IV ONE (00:15)
[2019-08-06] MEDS: piperacillin/tazo 3.375gm/50ml 50 ML IV SCH ×2 (00:19→07:01)
[2019-08-06] MEDS: NORepinephrine 8mg/ 250ml NS 250 ML IV SCH ×6 (01:11→08:03)
[2019-08-06 01:16] LABS: ABG BASE EXCESS -14.4 mmol/L (-2.0-3.0); ABG HCO3 14.6 mmol/L (22.0-26.0); ABG OXYGEN SATURATION 84.3 % (95-98); ABG PCO2 (T) 42.9 mmHg (35.0-45.0); ABG PH (T) 7.138 (7.350-7.450); FCOHb 0.4 % (0.5-1.5); MINUTE VOLUME 10 L/min; PATIENT TEMPERATURE 34.9; PEEP 5 cm H2O; RESPIRATORY RATE 26 b/min; RESPIRATORY RATE (OBSERVED) 26 b/min; TIDAL VOLUME 375 mL; TOTAL HEMOGLOBIN 11.8 G/dl (12.0-16.0)
[2019-08-06 01:26] LABS: ALBUMIN 1.3 G/DL (3.4-5.0); ANION GAP 14 (8-16); BLOOD UREA NITROGEN 48 MG/DL (7-18); BUN/CREATININE RATIO 17.3 (6.6-38.0); CALCIUM 7.8 MG/DL (8.5-10.1); CHLORIDE 106 MMOL/L (99-107); CREATININE 2.77 MG/DL (0.40-0.90); GLUCOSE 65 MG/DL (70-104); SODIUM 136 MMOL/L (135-145); TOTAL CARBON DIOXIDE 16.3 MMOL/L (24-32); eGFR 18 ML/MIN
[2019-08-06 01:30] LABS: PHOSPHORUS 9.3 MG/DL (2.3-4.5)
[2019-08-06] MEDS: dextrose 50%-water 50ml dispensing syringe IV PRN ×3 (02:03→07:47)
[2019-08-06] MEDS: methylPREDNISolone sod succ 125mg/2ml vial IV SCH ×2 (02:04→08:45)
[2019-08-06] MEDS: vasopressin inj. 20 UNIT in normal saline 100ml IV soln 39 ML IV SCH ×2 (02:05→09:12)
[2019-08-06] MEDS: normal saline 1000ml 1,000 ML IV SCH (02:08)
[2019-08-06 02:15] LABS: BASOPHILS % (AUTO) 0.1 % (0-1); EOSINOPHILS # (AUTO) 0.1 X10'3 (0-0.9); EOSINOPHILS % (AUTO) 3.8 % (0-6); HEMOGLOBIN 11.4 g/dl (12.0-16.0); LYMPHOCYTES # (AUTO) 0.2 X10'3 (1.1-4.8); LYMPHOCYTES % (AUTO) 9.9 % (21-51); MEAN CORPUSCULAR HEMOGLOBIN 30.8 PG (27.0-31.0); MEAN CORPUSCULAR HGB CONC 32.7 g/dL (33.0-36.5); MEAN CORPUSCULAR VOLUME 94.1 FL (78-98); MEAN PLATELET VOLUME 6.8 FL (7.4-10.4); MONOCYTES # (AUTO) 0.1 X10'3 (0-0.9); MONOCYTES % (AUTO) 2.7 % (2-12); NEUTROPHILS # (AUTO) 1.7 X10'3 (1.8-7.7); NEUTROPHILS % (AUTO) 83.5 % (42-75); PLATELET COUNT 75 X10'3 (140-440); RED BLOOD COUNT 3.72 X10'6 (4.20-5.60); RED CELL DISTRIBUTION WIDTH 14.6 % (11.5-14.5); WHITE BLOOD COUNT 2.1 X10'3 (4.5-11.0)
[2019-08-06 02:40] LABS: ALBUMIN 1.3 G/DL (3.4-5.0); ANION GAP 13 (8-16); BLOOD UREA NITROGEN 47 MG/DL (7-18); BUN/CREATININE RATIO 17.5 (6.6-38.0); CHLORIDE 107 MMOL/L (99-107); CREATININE 2.68 MG/DL (0.40-0.90); GLUCOSE 56 MG/DL (70-104); MAGNESIUM 2.2 MG/DL (1.5-2.4); PHOSPHORUS 9.6 MG/DL (2.3-4.5); POTASSIUM 5.4 MMOL/L (3.5-5.1); SODIUM 136 MMOL/L (135-145); TOTAL CARBON DIOXIDE 16.3 MMOL/L (24-32); VANCOMYCIN,RANDOM 12.3 UG/ML; eGFR 18 ML/MIN
[2019-08-06] MEDS: ipratropium/albuterol 3ml nebule NEB SCH ×3 (02:41→10:53)
[2019-08-06 02:45] LABS: NUCLEATED RED BLOOD CELLS 2 /100WBC (0-0); TOTAL CELLS COUNTED 100
[2019-08-06 02:46] LABS: LARGE PLATELETS MODERATE; PLATELET ESTIMATE DECREASED; TOXIC GRANULATION 1+; TOXIC VACUOLATION 2+
[2019-08-06] MEDS ORDERED: VANCOMYCIN LEVEL IV SCH (03:00)
[2019-08-06] MEDS ORDERED: epiNEPHrine inj 5 MG, calcium chloride inj. 1,000 MG in normal saline 250ml IV soln 250 ML IV PRN (03:05)
[2019-08-06 04:01] LABS: ABG BASE EXCESS -18.4 mmol/L (-2.0-3.0); ABG HCO3 13.1 mmol/L (22.0-26.0); ABG OXYGEN SATURATION 99.2 % (95-98); ABG PCO2 (T) 51.5 mmHg (35.0-45.0); ABG PH (T) 7.006 (7.350-7.450); ABG PO2 (T) 223.3 mmHg (83-108); FCOHb 0.3 % (0.5-1.5); FMetHb 0.2 % (0.3-1.12); FO2Hb 98.7 % (94-100); MINUTE VOLUME 11 L/min; PATIENT TEMPERATURE 34.7; PEEP 5 cm H2O; RESPIRATORY RATE 26 b/min; RESPIRATORY RATE (OBSERVED) 27 b/min; TIDAL VOLUME 375 mL; TOTAL HEMOGLOBIN 11.7 G/dl (12.0-16.0)
[2019-08-06 04:18] LABS: BASOPHILS % (AUTO) 0.1 % (0-1); EOSINOPHILS # (AUTO) 0.1 X10'3 (0-0.9); EOSINOPHILS % (AUTO) 3.3 % (0-6); HEMATOCRIT 32.1 % (35.0-45.0); HEMOGLOBIN 10.5 g/dl (12.0-16.0); LYMPHOCYTES # (AUTO) 0.2 X10'3 (1.1-4.8); LYMPHOCYTES % (AUTO) 8.8 % (21-51); MEAN CORPUSCULAR HEMOGLOBIN 31.2 PG (27.0-31.0); MEAN CORPUSCULAR HGB CONC 32.6 g/dL (33.0-36.5); MEAN CORPUSCULAR VOLUME 95.5 FL (78-98); MEAN PLATELET VOLUME 6.7 FL (7.4-10.4); MONOCYTES # (AUTO) 0.1 X10'3 (0-0.9); MONOCYTES % (AUTO) 3.1 % (2-12); NEUTROPHILS # (AUTO) 2.1 X10'3 (1.8-7.7); NEUTROPHILS % (AUTO) 84.7 % (42-75); PLATELET COUNT 58 X10'3 (140-440); RED BLOOD COUNT 3.36 X10'6 (4.20-5.60); RED CELL DISTRIBUTION WIDTH 14.7 % (11.5-14.5); WHITE BLOOD COUNT 2.5 X10'3 (4.5-11.0)
[2019-08-06 04:39] LABS: ALANINE AMINOTRANSFERASE 669 U/L (12-78); ALBUMIN/GLOBULIN RATIO 0.7 (1.1-1.5); ALKALINE PHOSPHATASE 38 IU/L (46-116); AMYLASE 195 U/L (25-115); ANION GAP 15 (8-16); ASPARTATE AMINO TRANSFERASE 1408 U/L (10-37); BILIRUBIN,DIRECT 0.3 MG/DL (0-0.3); BILIRUBIN,TOTAL 0.5 MG/DL (0.1-1.0); BLOOD UREA NITROGEN 40 MG/DL (7-18); BUN/CREATININE RATIO 17.5 (6.6-38.0); CALCIUM 6.4 MG/DL (8.5-10.1); CHLORIDE 109 MMOL/L (99-107); CREATININE 2.29 MG/DL (0.40-0.90); GLUCOSE 77 MG/DL (70-104); LIPASE < 50 U/L (73-393); PHOSPHORUS 9.6 MG/DL (2.3-4.5); POTASSIUM 4.8 MMOL/L (3.5-5.1); SODIUM 138 MMOL/L (135-145); TOTAL PROTEIN 2.5 G/DL (6.4-8.2); eGFR 22 ML/MIN
[2019-08-06 04:43] LABS: TOTAL CARBON DIOXIDE 14.1 MMOL/L (24-32)
[2019-08-06 05:33] LABS: BASOPHILS % (AUTO) 0.1 % (0-1); EOSINOPHILS # (AUTO) 0.1 X10'3 (0-0.9); EOSINOPHILS % (AUTO) 2.5 % (0-6); HEMATOCRIT 33.8 % (35.0-45.0); HEMOGLOBIN 10.9 g/dl (12.0-16.0); LYMPHOCYTES # (AUTO) 0.2 X10'3 (1.1-4.8); LYMPHOCYTES % (AUTO) 9.8 % (21-51); MEAN CORPUSCULAR HEMOGLOBIN 30.9 PG (27.0-31.0); MEAN CORPUSCULAR HGB CONC 32.3 g/dL (33.0-36.5); MEAN CORPUSCULAR VOLUME 95.6 FL (78-98); MEAN PLATELET VOLUME 6.7 FL (7.4-10.4); MONOCYTES # (AUTO) 0.1 X10'3 (0-0.9); MONOCYTES % (AUTO) 2.8 % (2-12); NEUTROPHILS # (AUTO) 1.9 X10'3 (1.8-7.7); NEUTROPHILS % (AUTO) 84.8 % (42-75); RED BLOOD COUNT 3.53 X10'6 (4.20-5.60); RED CELL DISTRIBUTION WIDTH 14.8 % (11.5-14.5); WHITE BLOOD COUNT 2.3 X10'3 (4.5-11.0)
[2019-08-06 05:39] LABS: PLATELET COUNT 49 X10'3 (140-440)
[2019-08-06] MEDS ORDERED: sodium bicarbonate (8.4%) inj. 75 MEQ in dextrose 5% water 500ml 500 ML IV SCH (05:49)
[2019-08-06 05:50] LABS: ANION GAP 16 (8-16); BLOOD UREA NITROGEN 40 MG/DL (7-18); CALCIUM 7.1 MG/DL (8.5-10.1); CHLORIDE 107 MMOL/L (99-107); CREATININE 2.35 MG/DL (0.40-0.90); GLUCOSE 138 MG/DL (70-104); MAGNESIUM 2.2 MG/DL (1.5-2.4); SODIUM 138 MMOL/L (135-145); TOTAL CARBON DIOXIDE 15.3 MMOL/L (24-32); eGFR 21 ML/MIN
[2019-08-06 06:02] LABS: PHOSPHORUS 9.9 MG/DL (2.3-4.5)
[2019-08-06] MEDS ORDERED: NORMAL SALINE IV ONE ×2 (07:10→07:23)
[2019-08-06] MEDS ORDERED: SODIUM BICARBONATE IV ONE ×2 (07:10→07:23)
[2019-08-06] MEDS: budesonide 0.5mg/2ml UD nebule IH SCH (07:11)
[2019-08-06 07:41] LABS: OXYGEN SATURATION (MIXED VEN) 36.6 % (60-80); PO2 MIXED VENOUS (TEMP COR) 24.4 mmHg (35-46)
[2019-08-06 07:55] LABS: BASOPHILS % (AUTO) 0.1 % (0-1); EOSINOPHILS # (AUTO) 0.1 X10'3 (0-0.9); EOSINOPHILS % (AUTO) 2.3 % (0-6); HEMATOCRIT 33.8 % (35.0-45.0); HEMOGLOBIN 10.8 g/dl (12.0-16.0); LYMPHOCYTES # (AUTO) 0.3 X10'3 (1.1-4.8); LYMPHOCYTES % (AUTO) 12.4 % (21-51); MEAN CORPUSCULAR HEMOGLOBIN 30.3 PG (27.0-31.0); MEAN CORPUSCULAR HGB CONC 31.9 g/dL (33.0-36.5); MEAN CORPUSCULAR VOLUME 95.1 FL (78-98); MEAN PLATELET VOLUME 6.8 FL (7.4-10.4); MONOCYTES # (AUTO) 0.1 X10'3 (0-0.9); MONOCYTES % (AUTO) 2.9 % (2-12); NEUTROPHILS % (AUTO) 82.3 % (42-75); RED BLOOD COUNT 3.55 X10'6 (4.20-5.60); RED CELL DISTRIBUTION WIDTH 14.9 % (11.5-14.5); WHITE BLOOD COUNT 2.4 X10'3 (4.5-11.0)
[2019-08-06] MEDS: aspirin 81mg tablet.DR PO SCH (08:00)
[2019-08-06] MEDS: montelukast 10mg tablet PO SCH (08:00)
[2019-08-06] MEDS: nicotine 21mg patch - 24 hr TD SCH (08:00)
[2019-08-06] MEDS ORDERED: pantoprazole 40 MG vial IV SCH (08:00)
[2019-08-06] MEDS ORDERED: vancomycin/NS 1 GM ADD-VANTAGE 250 ML IV SCH (08:00)
[2019-08-06] MEDS ORDERED: enoxaparin 30mg/0.3ml syringe SUBCUT SCH (08:00)
[2019-08-06 08:19] LABS: ALBUMIN 0.7 G/DL (3.4-5.0); ANION GAP 19 (8-16); BLOOD UREA NITROGEN 44 MG/DL (7-18); BUN/CREATININE RATIO 16.4 (6.6-38.0); CHLORIDE 110 MMOL/L (99-107); CREATININE 2.69 MG/DL (0.40-0.90); GLUCOSE 52 MG/DL (70-104); SODIUM 146 MMOL/L (135-145); TOTAL CARBON DIOXIDE 17.4 MMOL/L (24-32); TROPONIN I 0.49 NG/ML (0.0-0.05); eGFR 18 ML/MIN
[2019-08-06 08:38] LABS: PHOSPHORUS 14.2 MG/DL (2.3-4.5)
[2019-08-06 08:39] LABS: PLATELET COUNT 40 X10'3 (140-440)
[2019-08-06 08:40] LABS: POTASSIUM 6.5 MMOL/L (3.5-5.1)
[2019-08-06] MEDS: FENTANYL-0.9 % NACL/PF 100 ML IV PRN (09:48)
[2019-08-06 11:14] LABS: ANISOCYTOSIS 1+; NUCLEATED RED BLOOD CELLS 2 /100WBC (0-0); PLATELET ESTIMATE DECREASED; TOTAL CELLS COUNTED 100
[2019-08-06 11:15] LABS: BURR CELLS 2+
[2019-08-06 11:16] LABS: TOXIC GRANULATION 2+; TOXIC VACUOLATION 2+
--- NOTE | 2019-08-06 11:45 | NUR ---
Pt at 0954. Pronounced by Dr. Bonner. Pt's HR and Blood pressure kept on dropping, Code blue was called. , Ronnie Porter, at bed side while code blue was activated. Dr. Bonner talked with family () then cancelled Code blue. Organ donor called. Due to infection pt did not qualify. Awaiting family to select a mortuary.
[2019-08-07] MEDS ORDERED: bisacodyl 10mg suppository rectal RC PRN (12:25)
[2019-08-09] MEDS ORDERED: VANCOMYCIN LEVEL IV ONE (07:30)
== END 2019-08-06 09:54 | disposition expired | DRG 720 ==
LOC: ER 12:38 → SUR 3N 20:55 → CMPBEDREQ 20:56 → PCU 3S 08-03 12:32 → CICU 2S 08-05 11:18
PROVIDERS: ADMIT Internal Medicine; ATTEND Internal Medicine
PROC: 5A09357 Assistance with Respiratory Ventilation, Less than 24 Consecutive Hours, Continuous Positive Airway Pressure (ICD-10-PCS; 2019-08-03)
PROC: 5A09357 Assistance with Respiratory Ventilation, Less than 24 Consecutive Hours, Continuous Positive Airway Pressure (ICD-10-PCS; 2019-08-04)
PROC: 5A1935Z Respiratory Ventilation, Less than 24 Consecutive Hours (ICD-10-PCS; principal; 2019-08-05)
PROC: 5A09357 Assistance with Respiratory Ventilation, Less than 24 Consecutive Hours, Continuous Positive Airway Pressure (ICD-10-PCS; 2019-08-05)
PROC: 0BH17EZ Insertion of Endotracheal Airway into Trachea, Via Natural or Artificial Opening (ICD-10-PCS; 2019-08-05)
PROC: 04HY32Z Insertion of Monitoring Device into Lower Artery, Percutaneous Approach (ICD-10-PCS; 2019-08-05)
PROC: 4A133B1 Monitoring of Arterial Pressure, Peripheral, Percutaneous Approach (ICD-10-PCS; 2019-08-05)
PROC: 4A133J1 Monitoring of Arterial Pulse, Peripheral, Percutaneous Approach (ICD-10-PCS; 2019-08-05)
PROC: 05HY33Z Insertion of Infusion Device into Upper Vein, Percutaneous Approach (ICD-10-PCS; 2019-08-05)
PROC: 06HY33Z Insertion of Infusion Device into Lower Vein, Percutaneous Approach (ICD-10-PCS; 2019-08-05)
DX: A41.9 Sepsis, unspecified organism (principal); J96.00 Acute respiratory failure, unspecified whether with hypoxia or hypercapnia; R57.0 Cardiogenic shock; R65.21 Severe sepsis with septic shock; J43.9 Emphysema, unspecified; G93.40 Encephalopathy, unspecified; E87.2 Acidosis; I47.1 Supraventricular tachycardia; J45.901 Unspecified asthma with (acute) exacerbation; F10.239 Alcohol dependence with withdrawal, unspecified; F41.9 Anxiety disorder, unspecified; I10 Essential (primary) hypertension; N19 Unspecified kidney failure; Z85.41 Personal history of malignant neoplasm of cervix uteri; Z87.891 Personal history of nicotine dependence; Z79.899 Other long term (current) drug therapy; Z79.82 Long term (current) use of aspirin
CPT/HCPCS: 36415; 36600; 71045; 80048; 80053; 80069; 80202; 82140; 82150; 82248; 82330; 82550; 82803; 82810; 82948; 83605; 83690; 83735; 83880; 84100; 84145; 84443; 84484; 85018; 85025; 85610; 85730; 87040; 87070; 87077; 87081; 87186; 90935; 93005; 93306; 94002; 94640; 94660; 94760; 96365; 96375; 99285; C9113; E1594; G0378; J0171; J0461; J1250; J1644; J1815; J2250; J2270; J2543; J2930; J2997; J3010; J3370; J3411; J3475; J3490; J7030; J7050; J7060; J7626; P9045